=== PATIENT | female | born 1955 | race Caucasian/White ===

== ENCOUNTER 2018-01-19 09:09 | Inpatient (IN) | payer OTHER ==
[~2018-01-19] VITALS: Ht 167.6 cm; Wt 129.4 kg
--- NOTE | 2018-01-19 10:04 | ED GENERAL ADULT ---
See Addendum History of Present Illness General Chief Complaint: General Adult Stated Complaint: COUGH X FEW MONTHS, NAUSEA, DIARRHEA Source: patient Exam Limitations: no limitations Allergies Coded Allergies: NO KNOWN ALLERGIES (03/31/11) Reconcile Medications Aripiprazole 2 MG TABLET 1 TAB PO DAILY DEPREEE (Reported) Desvenlafaxine Succinate (Pristiq ER) 100 MG TAB.ER.24H 1 TAB PO DAILY UNK ( Reported) Famotidine 20 MG TABLET 1 TAB PO BID GERD (Reported) Lisinopril 40 MG TABLET 1 TAB PO DAILY HTN (Reported) Metoprolol Succinate 50 MG TAB.ER.24H 1 TAB PO DAILY HTN (Reported) Mometasone Furoate (Nasonex) 50 MCG SPRAY.PUMP 1 SPRAY NASB DAILY CONGESTION (Reported) Nebivolol HCl (Bystolic) 5 MG TABLET 1 TAB PO DAILY CAD (Reported) Triage Note: PT TO ED WITH C/O "STARTED TO HAVE A FEELING LIKE I HAD SOMETHING IN MY THROAT, WENT TO DR, THOUGHT I WAS OK, BUT I DIDN'T GET BETTER, COUGHING IS VERY BAD, THEN I GET DIARRHEA, NO APPETITE, TRYING TO KEEP HYDRATED". Triage Nurses Notes Reviewed? yes Onset: Gradual Duration: 2 MONTHS Timing: recent history Injury Environment: home Severity: moderate Severity Numbers: 8 No Modifying Factors: none Associated Symptoms: cough HPI: Patient is a 62-year-old female the patient anxiety and depression as well as hypertension presenting to the emergency Department chief complaint of intermittent dry cough, generalized malaise and weakness along with diarrhea has been intermittent for the past 2 months. Patient does report that she's been under a lot of stress, went to her primary care physician last week, thought that her depression medication was not working so she was advised to go to her psychiatrist which he did. Patient just recently added on another medication and she's been on it for about a week and a half. Denies palpitations. Denies headaches or confusion. She does report decreased by mouth intake due to no appetite. Denies any urinary frequency or urgency or dysuria. Positive nausea but no vomiting. Denies fevers or chills. No recent antibiotic use. Denies recent travel. No sick contacts. (She Morrison) Vital Signs & Intake/Output Vital Signs & Intake/Output Vital Signs Date Time Temp Pulse Resp B/P B/P Pulse O2 O2 Flow FiO2 Mean Ox Delivery Rate 01/19 1713 98.2 124 18 132/78 01/19 1635 98.2 124 18 132/78 01/19 1625 98.2 124 18 132/78 01/19 1247 98.2 143 20 136/87 97 Room Air 01/19 1145 97.0 134 22 128/72 01/19 1123 97.0 134 22 128/72 97 01/19 1057 98.0 113/84 01/19 0923 98.0 143 18 113/84 97 (Raisa NICE,Ace Linares) Past History Travel History Traveled to [place] past 21 day No Medical History Any Pertinent Medical History? 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 No (She Morrison) Review of Systems Review of Systems Constitutional: Reports: see HPI, malaise. Comments Review of systems: See HPI, All other systems negative. Constitutional, no chills fever or weight loss HEENT: No visual changes no sore throat Cardiovascular: No chest pain ,palpitation , orthopnea or ankle swelling Skin, no jaundice no rashes Respiratory: No dyspnea sputum or hemoptysis GI: no vomiting : No dysuria No hematuria Muscle skeletal: no back pain, no neck pain, Neurologic: No numbness no confusion, no headaches Psych: Positive stress, anxiety, positive depression, denies SI or HI. Heme/endocrine: No bruising no bleeding no polyuria or polydipsia Immunology: No splenectomy or history of AIDS (She Morrison) Physical Exam Physical Exam General Appearance: alert, awake, comfortable, obese Comments: Obese person in no acute distress HEENT: extraocular motion intact, no nystagmus. Pupils equally round and reactive to light and accommodation. Nose is atraumatic. External auditory canal and Tympanic membranes clear. Pharynx normal. No swelling or edema. No pallor noted to ocular conjunctiva bilaterally. Moist oral mucosa. Neck: Supple, no lymphadenopathy, full range of motion. Back: Nontender, no CVA tenderness. Cardiovascular: Irregular rate and rhythms no AUDIBLE murmurs rubs or gallops, normal JVP Respiratory: Chest nontender. No respiratory distress.breath sounds clear to auscultation bilaterally Abdomen: Soft, obese, nontender, no rebound or guarding, nondistended, no appreciable organomegaly. Normal bowel sounds. No ascites RECTAL: Nontender, no palpable internal hemorrhoids, brown stool, guaiac negative. Extremity: 2+ pitting edema in the lower extremities bilaterally, no calf tenderness to palpation, normal and equal pulses. Neuro: Alert oriented x3 Skin: No appreciable rash on exposed skin, skin is warm and dry. Psych: Mood and affect is normal, memory and judgment is normal. Core Measures ACS in differential dx? Yes CVA/TIA Diagnosis: No Sepsis Present: No Sepsis Focused Exam Completed? No (Randa RIVERA,She) Progress Differential Diagnoses I considered the following diagnoses in my evaluation of the patient: Irritable bowel syndrome, new-onset atrial fibrillation, cardiac arrhythmia, anemia, dehydration, electrolyte abnormality, chf Diagnostic Imaging: Viewed by Me: Radiology Read, CT Scan. Discussed w/RAD: Radiology Read, CT Scan. Radiology Impression: PATIENT: DEWEY HOLCOMB PRESENT AGE: 62 PATIENT ACCOUNT NO: [id number] : 55 LOCATION: [facility] ORDERING PHYSICIAN: She RIVERA SERVICE DATE: 01/19/18 EXAM TYPE: CAT - CT ABD & PELVIS W IV CONTRAST EXAMINATION: CT ABDOMEN AND PELVIS WITH CONTRAST CLINICAL INFORMATION: Abdominal pain and diarrhea. Assess for biliary process. COMPARISON: Chest x-ray from earlier the same day. Abdominal ultrasound from . TECHNIQUE: Multidetector volumetric imaging was performed of the abdomen and pelvis following IV administration of 95 mL of Optiray 320 intravenous contrast. Sagittal and coronal reformatted images were obtained on the technologist's workstation. DLP: 1403 mGy-cm FINDINGS: Public Services Assistant: There is a left total hip replacement. LUNG BASES: Minor dependent changes in the lung bases. The imaged heart and pericardium appear unremarkable. There is a small hiatal hernia. LIVER, GALLBLADDER, AND BILIARY TREE: The liver is diffusely low in attenuation without discrete hepatic lesion or intrahepatic biliary ductal dilatation. There has been prior cholecystectomy. The extrahepatic biliary system slightly patulous proximally with normal tapering distally, likely related to post cholecystectomy appearance. No choledocholithiasis. PANCREAS: Unremarkable. SPLEEN: Unremarkable. ADRENAL GLANDS: Unremarkable. KIDNEYS AND URETERS: The kidneys are normal in size, shape, and attenuation. No hydronephrosis, hydroureter, or calculi seen. No perinephric stranding. BLADDER: The bladder is not well assessed due to streak artifacts from hip replacement. It is decompressed. GASTROINTESTINAL TRACT: There has been gastric bypass surgery. No evidence of obstruction at the anastomoses. Loops of small bowel appear normal in caliber. A normal appendix is visualized. The colon is normal in caliber and decompressed. A few sigmoid diverticula without definitive surrounding inflammatory change, accounting for limited assessment at the rectal level due to streak artifact. No drainable fluid collections. ABDOMINAL WALL: There is a fat-containing left inguinal hernia. LYMPH NODES: No evidence of adenopathy. VASCULAR: Unremarkable. PELVIC VISCERA: There is a coarsely calcified 1.7 cm structure in the right side of the uterus compatible with a fibroid. No adnexal masses. OSSEOUS STRUCTURES: Total left hip replacement. There are degenerative changes of the right hip, pubic symphysis, and SI joints. There is mild multilevel spondylosis in the spine. There are scattered Schmorl's nodes, and endplate spurring. No compression deformities. No evidence of spondylolyses. No evidence of acute osseous abnormality. IMPRESSION: 1. Markedly hypoattenuating liver compatible with hepatic steatosis. No focal hepatic lesions. No evidence of intra or extrahepatic biliary ductal dilatation post cholecystectomy. 2. Status post gastric bypass without evidence of anastomotic obstruction. 3. Few sigmoid diverticula without diverticulitis. DICTATED BY: Elizabeth Hoskins MD DATE/TIME DICTATED:01/19/181307 CAD MANAGER:RAFAEL DATE/TIME TRANSCRIBED:01/19/181307 CONFIDENTIAL, DO NOT COPY WITHOUT APPROPRIATE AUTHORIZATION. <Electronically signed in Other Vendor System> SIGNED BY: Elizabeth Hoskins MD 01/19/18 1321, PATIENT: DEWEY HOLCOMB PRESENT AGE: 62 PATIENT ACCOUNT NO: [id number] : 55 LOCATION: [facility] ORDERING PHYSICIAN: She RIVERA SERVICE DATE: 01/19/18 EXAM TYPE: CAT - CT ABD & PELVIS W IV CONTRAST EXAMINATION: CT ABDOMEN AND PELVIS WITH CONTRAST CLINICAL INFORMATION: Abdominal pain and diarrhea. Assess for biliary process. COMPARISON: Chest x-ray from earlier the same day. Abdominal ultrasound from 03/31/2011. TECHNIQUE: Multidetector volumetric imaging was performed of the abdomen and pelvis following IV administration of 95 mL of Optiray 320 intravenous contrast. Sagittal and coronal reformatted images were obtained on the technologist's workstation. DLP: 1403 mGy-cm FINDINGS: Public Services Assistant: There is a left total hip replacement. LUNG BASES: Minor dependent changes in the lung bases. The imaged heart and pericardium appear unremarkable. There is a small hiatal hernia. LIVER, GALLBLADDER, AND BILIARY TREE: The liver is diffusely low in attenuation without discrete hepatic lesion or intrahepatic biliary ductal dilatation. There has been prior cholecystectomy. The extrahepatic biliary system slightly patulous proximally with normal tapering distally, likely related to post cholecystectomy appearance. No choledocholithiasis. PANCREAS: Unremarkable. SPLEEN: Unremarkable. ADRENAL GLANDS: Unremarkable. KIDNEYS AND URETERS: The kidneys are normal in size, shape , and attenuation. No hydronephrosis, hydroureter, or calculi seen. No perinephric stranding. BLADDER: The bladder is not well assessed due to streak artifacts from hip replacement. It is decompressed. GASTROINTESTINAL TRACT: There has been gastric bypass surgery. No evidence of obstruction at the anastomoses. Loops of small bowel appear normal in caliber. A normal appendix is visualized. The colon is normal in caliber and decompressed. A few sigmoid diverticula without definitive surrounding inflammatory change, accounting for limited assessment at the rectal level due to streak artifact. No drainable fluid collections. ABDOMINAL WALL: There is a fat-containing left inguinal hernia. LYMPH NODES: No evidence of adenopathy. VASCULAR: Unremarkable. PELVIC VISCERA: There is a coarsely calcified 1.7 cm structure in the right side of the uterus compatible with a fibroid. No adnexal masses. OSSEOUS STRUCTURES: Total left hip replacement. There are degenerative changes of the right hip, pubic symphysis, and SI joints. There is mild multilevel spondylosis in the spine. There are scattered Schmorl's nodes, and endplate spurring. No compression deformities. No evidence of spondylolyses. No evidence of acute osseous abnormality. IMPRESSION: 1. Markedly hypoattenuating liver compatible with hepatic steatosis. No focal hepatic lesions. No evidence of intra or extrahepatic biliary ductal dilatation post cholecystectomy. 2. Status post gastric bypass without evidence of anastomotic obstruction. 3. Few sigmoid diverticula without diverticulitis. DICTATED BY: Elizabeth Hoskins MD DATE/TIME DICTATED:01/19/181307 CAD MANAGER:RAFAEL DATE/TIME TRANSCRIBED:1307 CONFIDENTIAL, DO NOT COPY WITHOUT APPROPRIATE AUTHORIZATION. < Electronically signed in Other Vendor System> SIGNED BY: Elizabeth Hoskins MD 01/19/18 1321 Initial ED EKG: RAPID ATRIAL FIBRILLATION. 152 Comments: Spoke with Dr. Linn, recommending we continue trying IV Lopressor to control heart rate. Patient will be anticoagulated with heparin. Patient will be admitted to telemetry under Dr. Cortés for rapid atrial fibrillation which is new for this patient. Patient and family informed of all lab work results and imaging results. (Randa RIVERA,She) Differential Diagnoses I considered the following diagnoses in my evaluation of the patient: Plan of Care: Orders Procedure Date/time Status MAGNESIUM 01/20 0600 Active CBC WITHOUT DIFFERENTIAL 01/20 0600 Active BASIC ELECTROLYTES PLUS BUN&CR 01/20 0600 Active Heart Healthy Diet 01/19 D Active TROPONIN LEVEL 01/19 2200 Active EKG 01/19 2200 Active Weight 01/19 1626 Active Teach/Educate 01/19 1626 Active Pain Treatment and Response 01/19 1626 Active Nutritional Intake, Monitor 01/19 1626 Active Isolation 01/19 1626 Active Patient Care Conference 01/19 1626 Active TROPONIN LEVEL 01/19 1600 Complete EKG 01/19 1600 Active Pathway - chart 01/19 1505 Active ECHOCARDIOGRAM 01/19 1505 Active Patient Data 01/19 1348 Active Add-on Test (ER Only) 01/19 1325 Active ED Holding Orders 01/19 1255 Active Admit to inpatient 01/19 1255 Active Vital Signs 01/19 1255 Active Code Status 01/19 1255 Active Add-on Test (ER Only) 01/19 1125 Active Add-on Test (ER Only) 01/19 1057 Active HEPATITIS PANEL 01/19 1025 Active ETHANOL 01/19 1025 Active D-DIMER 01/19 1025 Complete DIRECT BILIRUBIN 01/19 1025 Active Intake & Output 01/19 1019 Active Telemetry/Director Medical Surgical 01/19 1004 Active THYROID STIMULATING HORMONE 01/19 1004 Active TROPONIN LEVEL 01/19 1004 Active PARTIAL THROMBOPLASTIN TIME 01/19 1004 Complete PROTHROMBIN TIME 01/19 1004 Complete MAGNESIUM 01/19 1004 Active FREE T4 01/19 1004 Active COMPREHENSIVE METABOLIC PANEL 01/19 1004 Active CBC WITHOUT DIFFERENTIAL 01/19 1004 Complete B-TYPE NATRIURETIC PEP (BNP) 01/19 1004 Active EKG 01/19 0957 Active Pathway - chart 01/19 UNK Active House Staff 01/19 UNK Active Lab Add-on Test 01/19 UNK Active VTE Mechanical Prophylaxis 01/19 UNK Active CIWA 01/19 UNK Active Activity/Ambulation 01/19 UNK Active SOCIAL WORK CONSULT 01/19 UNK Active Current Medications Sig/Antwon Start time Last Medication Dose Stop Time Status Admin Aripiprazole 2 MG DAILY 01/20 0900 AC (Abilify) Folic Acid 1 MG DAILY 01/20 0900 AC (Folic Acid) Lisinopril 40 MG DAILY 01/20 0900 AC (Prinivil) Multivitamins 1 TAB DAILY 01/20 0900 AC (Theragran Vitamins) Thiamine HCl 100 MG DAILY 01/20 0900 AC (Vitamin B1) Famotidine 20 MG BID 01/19 2100 AC (Pepcid) Lorazepam 0 Q1P PRN 01/19 1600 AC (Ativan) Acetaminophen 650 MG Q6P PRN 01/19 1500 AC (Tylenol) Heparin Sodium 25,000 UNIT Q24H 01/19 1345 AC 01/19 (Porcine) 1421 (Heparin) Sodium Chloride 500 ML Diltiazem HCl 10 MG ONCE ONE 01/19 1045 CAN (Cardizem) 01/19 1046 Laboratory Tests 01/19/18 1617: Troponin I < 0.01 01/19/18 1025: Anion Gap 12, Estimated GFR > 60, BUN/Creatinine Ratio 11.1, Glucose 93, Calcium 8.2 L, Magnesium 1.5 L, Total Bilirubin 3.1 H, Direct Bilirubin 1.4 H, AST 149 H, ALT 97 H, Alkaline Phosphatase 109, Troponin I < 0.01, Pro-B- Natriuretic Pept 3620 H, Total Protein 6.9, Albumin 3.1 L, Globulin 3.8, Albumin/Globulin Ratio 0.8 L, TSH 5.510 H, Free T4 1.74, PT 12.6 H, INR 1.15, APTT 32, D-Dimer High Sensitivty 474 H, CBC w Diff NO MAN DIFF REQ, RBC 3.63 L , MCV 103.8 H, MCH 35.4 H, MCHC 34.1, RDW 13.7, MPV 9.1, Gran % 79.0 H, Lymphocytes % 9.1 L, Monocytes % 11.0 H, Eosinophils % 0.4, Basophils % 0.5, Absolute Granulocytes 5.3, Absolute Lymphocytes 0.6 L, Absolute Monocytes 0.7 H, Absolute Eosinophils 0, Absolute Basophils 0, Hepatitis A IgM Ab Pending, Hep Bs Antigen Pending, Hep B Core IgM Ab Conf Pending, Hepatitis C Antibody Pending , Serum Alcohol < 10.0 Dr. Lovett informed of elevated LFTs and bilirubin. No signs of ductal dilation on CT. (She Morrison) (Raisa NICE,Ace Linares) Departure Departure Disposition: STILL A PATIENT Condition: Stable Clinical Impression Primary Impression: Rapid atrial fibrillation Referrals: Dorina Hernandez MD (PCP/Family) Departure Forms: Customer Survey General Discharge Information Admission Note Spoke With: Farnaz Thompson MD Documentation of Exam: Documentation of any treatments & extenuating circumstances including Concerns Regarding Discharge (functional status, medication knowledge or non-compliance, living conditions, etc.) that warrant an admission rather than observation: Patient requiring IV heparinization for new onset atrial fibrillation, cardiology consultation, telemetry monitoring, patient may need GI consultation secondary to elevated LFTs and bilirubin. Discharge at this time is medically harmful secondary to likely have worsening symptoms. Medication management. (She Morrison) PA/DOG BEAUTICIAN Co-Sign Statement Statement: ED Attending supervision documentation- [X] I saw and evaluated the patient. I have also reviewed all the pertinent lab results and diagnostic results. I agree with the findings and the plan of care as documented in the PA's/DOG BEAUTICIAN's documentation. Patient presents for evaluation of just not feeling well overall with coughing spasms. Physical examination reveals a comfortable appearing and conversant patient a rapid irregular heart rate and otherwise clear lungs. [] I have reviewed the ED Record and agree with the PA's/DOG BEAUTICIAN's documentation. [] Additions or exceptions (if any) to the PAs/DOG BEAUTICIAN's note and plan are summarized below: [] (Raisa NICE,Ace Linares) PA/DOG BEAUTICIAN Co-Sign Statement Statement: ED Attending supervision documentation- [X] I saw and evaluated the patient. I have also reviewed all the pertinent lab results and diagnostic results. I agree with the findings and the plan of care as documented in the PA's/DOG BEAUTICIAN's documentation. [] I have reviewed the ED Record and agree with the PA's/DOG BEAUTICIAN's documentation. [] Additions or exceptions (if any) to the PAs/DOG BEAUTICIAN's note and plan are summarized below: [] (Lyndon MENDOZA,Ace Nichols) Critical Care Note Critical Care Note Critical Care Time: 30-74 min (Randa RIVERA,She)
[2018-01-19 10:34] LABS: ABSOLUTE BASOPHIL COUNT 0 /CUMM (0.0-0.2); ABSOLUTE EOSINOPHIL COUNT 0 /CUMM (0.0-0.7); ABSOLUTE GRANULOCYTE CT 5.3 /CUMM (1.4-6.5); ABSOLUTE LYMPH COUNT 0.6 /CUMM (1.2-3.4); ABSOLUTE MONOCYTE COUNT 0.7 /CUMM (0.10-0.60); BASOPHIL % 0.5 % (0.0-2.0); EOSINOPHIL % 0.4 % (0-5); HEMATOCRIT 37.7 % (37-47); MEAN CORPUSCULAR HGB 35.4 PG (27.0-31.0); MEAN CORPUSCULAR HGB CONC 34.1 G/DL (33.0-37.0); MEAN CORPUSCULAR VOLUME 103.8 FL (81.0-99.0); MEAN PLATELET VOLUME 9.1 FL (7.4-10.4); PLATELET COUNT 115 /CUMM (130-400); RBC DISTRIBUTION WIDTH 13.7 % (11.5-14.5); RED BLOOD CELL CT 3.63 /CUMM (4.20-5.40); WHITE BLOOD CELL COUNT 6.8 /CUMM (4.8-10.8)
[2018-01-19 10:43] LABS: PT 12.6 SEC (9.4-12.5); PTT 32 SEC (25-37)
--- NOTE | 2018-01-19 11:21 | RADIOLOGY REPORT ---
XR PORTABLE CHEST CLINICAL INFORMATION: Congestion and shortness of breath. COMPARISON: None available. TECHNIQUE: Portable frontal view of the chest was obtained. FINDINGS: Symmetric lung inflation. There is no focal consolidation, pleural effusion, or pneumothorax. Cardiac silhouette size is normal. There are no acute osseous findings. IMPRESSION: No acute pulmonary process.
[2018-01-19] MEDS ORDERED: NASONEX17 GM NASB (11:45)
[2018-01-19] MEDS ORDERED: ARIPIPRAZOLE2 MG PO (11:45)
[2018-01-19] MEDS ORDERED: PRISTIQ ER100 MG PO (11:46)
[2018-01-19] MEDS ORDERED: METOPROLOL SUCC50 M2 PO (11:46)
[2018-01-19] MEDS ORDERED: LISINOPRIL40 M1 PO (11:46)
--- NOTE | 2018-01-19 13:21 | CT SCAN REPORT ---
EXAMINATION: CT ABDOMEN AND PELVIS WITH CONTRAST CLINICAL INFORMATION: Abdominal pain and diarrhea. Assess for biliary process. COMPARISON: Chest x-ray from earlier the same day. Abdominal ultrasound from 03/31/2011. TECHNIQUE: Multidetector volumetric imaging was performed of the abdomen and pelvis following IV administration of 95 mL of Optiray 320 intravenous contrast. Sagittal and coronal reformatted images were obtained on the technologist's workstation. DLP: 1403 mGy-cm FINDINGS: Diesel Fitter Mechanic: There is a left total hip replacement. LUNG BASES: Minor dependent changes in the lung bases. The imaged heart and pericardium appear unremarkable. There is a small hiatal hernia. LIVER, GALLBLADDER, AND BILIARY TREE: The liver is diffusely low in attenuation without discrete hepatic lesion or intrahepatic biliary ductal dilatation. There has been prior cholecystectomy. The extrahepatic biliary system slightly patulous proximally with normal tapering distally, likely related to post cholecystectomy appearance. No choledocholithiasis. PANCREAS: Unremarkable. SPLEEN: Unremarkable. ADRENAL GLANDS: Unremarkable. KIDNEYS AND URETERS: The kidneys are normal in size, shape, and attenuation. No hydronephrosis, hydroureter, or calculi seen. No perinephric stranding. BLADDER: The bladder is not well assessed due to streak artifacts from hip replacement. It is decompressed. GASTROINTESTINAL TRACT: There has been gastric bypass surgery. No evidence of obstruction at the anastomoses. Loops of small bowel appear normal in caliber. A normal appendix is visualized. The colon is normal in caliber and decompressed. A few sigmoid diverticula without definitive surrounding inflammatory change, accounting for limited assessment at the rectal level due to streak artifact. No drainable fluid collections. ABDOMINAL WALL: There is a fat-containing left inguinal hernia. LYMPH NODES: No evidence of adenopathy. VASCULAR: Unremarkable. PELVIC VISCERA: There is a coarsely calcified 1.7 cm structure in the right side of the uterus compatible with a fibroid. No adnexal masses. OSSEOUS STRUCTURES: Total left hip replacement. There are degenerative changes of the right hip, pubic symphysis, and SI joints. There is mild multilevel spondylosis in the spine. There are scattered Schmorl's nodes, and endplate spurring. No compression deformities. No evidence of spondylolyses. No evidence of acute osseous abnormality. IMPRESSION: 1. Markedly hypoattenuating liver compatible with hepatic steatosis. No focal hepatic lesions. No evidence of intra or extrahepatic biliary ductal dilatation post cholecystectomy. 2. Status post gastric bypass without evidence of anastomotic obstruction. 3. Few sigmoid diverticula without diverticulitis.
--- NOTE | 2018-01-19 13:52 | History & Physical ---
HowardRivas 01/19/18 1351: General Information and HPI MD Statement: I have seen and personally examined DEWEY HOLCOMB and documented this H&P. The patient is a 62 year old F who presented with a patient stated chief complaint of generalized weakness, abdominal discomfort, decreased appetite and dry cough for last couple of days []. Source of Information: patient, old records Exam Limitations: no limitations History of Present Illness: 62 YO obese F ex-smoker with PMH of HTN, GERD, depression, gastric bypass and SVT status post ablation came to ED with chief complaint of generalized weakness , decreased appetite, abdominal discomfort and cough for last couple of days. Patient reported that she was in her usual state of health when she noticed generalized weakness and decreased appetite. Patient also reported that she has chronic dry cough since for last 1 month and it comes in bouts. Patient reported that during cough episode sometimes she has bowel and urinary incontinence. She also endorsed that she has some abdominal discomfort with some callus bowel movements intermittently. Patient denied any chest pain, palpitation, shortness of breath, blood in stool, blood in vomitus, headache, sweating, nausea, vomiting, constipation, sick contact, any nose, trauma. Patient also reported that she is drinking alcohol 3 -4 drinks every day and her last drink was 2 days back. Patient reported that she is seeing Dr. 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 Last time patient was admitted to [facility] for cholecystectomy in 2010 and she was found to have SVT that was spontaneously converted back to sinus rhythm. She had last echocardiogram in 2010 that showed ejection fraction 5560 percent. ED course: Vitals: Temperature 98.0, pulse 143, respiratory rate 18, blood pressure 113/84, oxygen saturation 97% on room air. Labs: WBC count 6.8, hemoglobin 12.8, hematocrit 37.7, platelet count 115, sodium 140, ratio 4.1, BUN 10, creatinine 0.9, anion gap 12, BUNs/creatinine ratio 11.1, glucose 93, calcium 8.2, magnesium 1.5, total bilirubin 3.1, direct bilirubin 1.4, AST 149, AST 97, troponin less than 0.01, proBNP 3620 She was given 2 pushes of 5 mg of metoprolol in ED Allergies/Medications Allergies: Coded Allergies: NO KNOWN ALLERGIES (03/31/11) Past History Travel History Traveled to [place] past 21 day No Medical History Neurological: NONE EENT: NONE Cardiovascular: hypertension Respiratory: NONE Gastrointestinal: GERD, GASTRIC BYPASS Hepatic: NONE Renal: NONE Musculoskeletal: NONE Psychiatric: depression Endocrine: NONE Blood Disorders: NONE Cancer(s): NONE 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 Denies: chills, fever. EENTM: Reports: no symptoms. Cardiovascular: Denies: chest pain, palpitations. Respiratory: Reports: cough. Denies: short of breath, sputum production. GI: Reports: abdominal pain, diarrhea, bowel incontinence. Denies: nausea, vomiting. Genitourinary: Reports: no symptoms. Musculoskeletal: Reports: no symptoms. Neurological/Psychological: Reports: no symptoms. Exam & Diagnostic Data Last 24 Hrs of Vital Signs/I&O Vital Signs Date Time Temp Pulse Resp B/P B/P Pulse O2 O2 Flow FiO2 Mean Ox Delivery Rate 01/19 1247 98.2 143 20 136/87 97 Room Air 01/19 1145 97.0 134 22 128/72 01/19 1123 97.0 134 22 128/72 97 01/19 1057 98.0 113/84 01/19 0923 98.0 143 18 113/84 97 Intake & Output 01/19 1600 01/19 0800 01/19 0000 Intake Total 1000 Output Total Balance 1000 Intake, IV 1000 Patient 265 lb Weight Weight Reported by Patient Measurement Method Physical Exam General Appearance Alert, Oriented X3, Cooperative Skin No Rashes Skin Temp/Moisture Exam: Warm/Dry Sepsis Skin Exam (color): Normal for Ethnicity HEENT Atraumatic, PERRLA, EOMI Neck Supple Cardiovascular Normal S1, Normal S2 Lungs Clear to Auscultation Abdomen Soft, No Tenderness Neurological Normal Speech, Strength at 5/5 X4 Ext, Normal Tone Extremities B/l pedal edema Last 24 Hrs of Labs/[place]: Laboratory Tests 01/19/18 1025: Anion Gap 12, Estimated GFR > 60, BUN/Creatinine Ratio 11.1, Glucose 93, Calcium 8.2 L, Magnesium 1.5 L, Total Bilirubin 3.1 H, Direct Bilirubin 1.4 H, AST 149 H, ALT 97 H, Alkaline Phosphatase 109, Troponin I < 0.01, Pro-B- Natriuretic Pept 3620 H, Total Protein 6.9, Albumin 3.1 L, Globulin 3.8, Albumin/Globulin Ratio 0.8 L, TSH 5.510 H, Free T4 1.74, PT 12.6 H, INR 1.15, APTT 32, D-Dimer High Sensitivty 474 H, CBC w Diff NO MAN DIFF REQ, RBC 3.63 L , MCV 103.8 H, MCH 35.4 H, MCHC 34.1, RDW 13.7, MPV 9.1, Gran % 79.0 H, Lymphocytes % 9.1 L, Monocytes % 11.0 H, Eosinophils % 0.4, Basophils % 0.5, Absolute Granulocytes 5.3, Absolute Lymphocytes 0.6 L, Absolute Monocytes 0.7 H, Absolute Eosinophils 0, Absolute Basophils 0, Serum Alcohol < 10.0 Assessment/Plan Assessment: 62 YO obese F ex-smoker with PMH of HTN, GERD, depression, gastric bypass and SVT status post ablation came to ED with chief complaint of generalized weakness , decreased appetite, abdominal discomfort and cough for last couple of days. We'll admit the patient on telemetry floor to treat for; Atrial fibrillation with rapid ventricle response: -Continue metoprolol 25 mg twice a day -Patient may need Cardizem drip to control her heart rate -Continue IV heparin for anticoagulation considering her high CHADs-Vasc score. -Cardiology consult -Echocardiogram in a.m. Alcohol withdrawal: -Patient has history of alcohol abuse -We will put the patient on CIWA protocol and will give IV Ativan when necessary. -Vitamin B and folic acid supplement -Continue thiamine supplement Transient transaminitis: -Probably due to alcoholic liver disease -We will monitor her LFTs -We will consider right upper quadrant ultrasound/CT scan abdomen Thrombocytopenia: -probably due to alcoholic liver disease -Continue monitoring platelet count -Avoid any medication that decreases platelet count of function. History of Hypertension: -Continue her home medications History of GERD and gastric bypass: -Continue omeprazole History of depression: -Continue home medications DVT prophylaxis: Mechanical and the subcutaneous heparin Code Status: Full code As Ranked By This Provider Problem List: 1. Rapid atrial fibrillation 2. Transaminitis 3. Alcohol withdrawal Core Measures/Misc (06/21) Acute Coronary Syndrome ACS Diagnosis: No Congestive Heart Failure Congestive Heart Failure Diagnosis No Cerebrovascular Accident CVA/TIA Diagnosis: No VTE (View Protocol) VTE Risk Factors Age>40 No Mechanical VTE Prophylaxis d/t N/A MechProphylax Ordered No VTE Pharm Prophylaxis d/t NA PharmProphylax ordered Sepsis (View protocol) Sepsis Present: No Farnaz Thompson MD 01/19/18 1630: General Information and HPI Allergies/Medications Home Med list Aripiprazole 2 MG TABLET 1 TAB PO DAILY DEPREEE (Reported) Desvenlafaxine Succinate (Pristiq ER) 100 MG TAB.ER.24H 1 TAB PO DAILY UNK ( Reported) Famotidine 20 MG TABLET 1 TAB PO BID GERD (Reported) Lisinopril 40 MG TABLET 1 TAB PO DAILY HTN (Reported) Metoprolol Succinate 50 MG TAB.ER.24H 1 TAB PO DAILY HTN (Reported) Mometasone Furoate (Nasonex) 50 MCG SPRAY.PUMP 1 SPRAY NASB DAILY CONGESTION (Reported) Nebivolol HCl (Bystolic) 5 MG TABLET 1 TAB PO DAILY CAD (Reported) Past Family/Social History Psychosocial History Other Social History: Family history non contributory to current illness. 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 fib and imaging and labs that are really suggestive off liver disease suspected alcoholic liver disease. Patient has new rapid A. fib and given her chads score she needs anticoagulation. The ED has empirically started on IV heparin and will continue that for now. We'll call a formal cardiology consult as I think she will be eligible for one of the novel agents for anticoagulation. She was given IV metoprolol for rate control and her rate is still fairly rapid. Will have to speak to cardiology- she takes lisinopril with 2 beta blockers as an outpatient. For now will have her on lisinopril and will give her one of the beta blockers with likely IV Cardizem for rate control. We'll check a TSH for hypothyroidism, given the macrocytosis we'll check a B12 and folate as well. She has the elevated bili with the transaminitis and the CT abdomen which shows hepatic steatosis and I think it's all attributable to alcohol. Nonetheless will check a hepatitis panel. Will also call a aids social worker consult as I think on discharge she will need help with alcohol cessation. We'll get an echocardiogram given the new rapid A. fib, watch on telemetry. The IV heparin will also serve for DVT prophylaxis we will replete her hypomagnesemia and follow closely. Steve Alex MD 01/19/18 0211: Resident Review Statement Other Findings: History of Present Illness 62 year old woman with past medical history of SVT s/p ablation (2016), morbid obesity, anxiety, depression, hypertension, and hyperlipidemia seen for evaluation of persistent cough with nausea, diarrhea, weakness, and malaise. Patient reports that she has had a progressively worsening cough over the past few months. This past Thursday she developed nausea with diarrhea and progressively worsening fatigue and malaise. Patient left work early Thursday and for persistence of these symptoms she came to the [place] ED for evaluation. Presently patient states that her symptoms are unchanged. She denies any recent travel, antibiotics, new medications, sick contacts, or consumption of raw/ undercooked food. Review of Systems She otherwise denies any headache, fever, chills, lightheadedness, dizziness, blurred/double vision, chest pain, palpitations, heartburn, shortness of breath, nausea, vomiting, diarrhea. Objective Vitals- Temp 97.0-98.2, HR 134-143, RR 18-22, SBP 113-136, O2 97% on Room air Physical Exam -GEN: well developed, morbidly obese middle aged woman in no acute distress -HEENT: NCAT, PERRL, EOMI, anicteric sclera, MMM -NECK: Supple, no JVD, trachea midline -CARD: irregularly irregular -PULM: Diminished bibasilar airflow -ABD: Soft, NT, ND, BS+ -NEURO: Awake and alert, CN II-XII grossly intact -EXT: no edema Labs / Imaging / Studies -CBC: WBC 6.8, HGB 12.8, HCT 37.7, PLT 115 -BMP: Na 140, K 4.1, Cl 104, CO2 24, BUN 10, Cr 0.9 -LFT: T. bili 3.1, D. bili 1.4, AST 149, ALT 97 -Misc: Mg 1.5, D-Dimer 474, INR 1.15, BNP 3620, troponin I < 0.01, TSH 5.510, T4 1.74, EtOH < 10 -EKG: Atrial fibrillation with rapid ventricular response -CXR: no acute pulmonary process -CT Abdomen / Pelvis with IV contrast: 1. Markedly hypoattenuating liver compatible with hepatic steatosis. No focal hepatic lesions. No evidence of intra or extrahepatic biliary ductal dilatation post cholecystectomy. 2. Status post gastric bypass without evidence of anastomotic obstruction. 3. Few sigmoid diverticula without diverticulitis. Assessment 62 year old woman with multiple medical problems significant for SVT s/p ablation, hypertension, hyperlipidemia and obesity seen for evaluation of persistent worsening cough with new diarrhea with nausea and fatigue. Patient was found to be tachycardic in triage for which a 12-lead EKG was obtained that demonstrated new onset atrial fibrillation with rapid ventricular response. She received several pushes of intravenous lopressor with poor control of her heart rate. She was started on a heparin drip due to a CHADsVASc score of 2 for hypertension and gender. Patient is to be admitted to the telemetry floor for rate control, cardiology evaluation, and echocardiogram. Problem List -New Onset Atrial Fibrillation with Rapid Ventricular Response -Transaminitis with hepatic steatosis -Excessive alcohol use -Macrocytosis, likely due to alcohol/nutritional deficiency -History of SVT s/p ablation (2015) -Morbid obesity -Anxiety / Depression -Hypertension -Hyperlipidemia Plan -Admit to telemetry -Telemetry monitoring -CIWA -Ativan PRN per CIWA -Heparin GGT -Metoprolol 25 mg PO BID -Metoprolol 5 mg IV PRN for tachycardia -Thiamine / Folate / Multivitamin -Cardiology consult for new afib -Social work consult for alcohol counseling -Echocardiogram -Check hepatitis panel -Trend troponin / EKG until peak or three negative sets -Pain control with acetaminophen -Heart healthy diet -DVT ppx with heparin GGT -FULL CODE
[2018-01-19] MEDS ORDERED: FAMOTIDINE20 M1 PO (14:17)
[2018-01-19] MEDS ORDERED: BYSTOLIC5 M1 PO (14:18)
--- NOTE | 2018-01-19 15:31 | Admission Certification ---
Admission Certification Certification Statement - As attending physician, I certify that at the time of - admission, based on clinical presentation, severity of - symptoms, need for further diagnostic testing and - therapeutic interventions, and risk of adverse outcomes - without in-hospital treatment, in my clinical assessment, - this patient requires an acute hospital stay for a minimum - of two nights or longer. I have also considered psychsocial - factors such as support system, advanced age, financial - issues, cognitive issues, and failed out-patient treatments, - past re-admission history, safety of patient, and lack of - compliance as applicable. Specific rationale supporting this admission is: New atrial fibrillation
--- NOTE | 2018-01-19 15:34 | ULTRASOUND REPORT ---
EXAMINATION: US TRIPLEX OF LOWER EXTREMITIES, BILATERAL CLINICAL INFORMATION: Elevated d-dimer, unable to repeat CTA at this time. COMPARISON: None TECHNIQUE: Color-flow triplex imaging with spectral analysis and compression Doppler were performed on the lower extremities. FINDINGS: Respiratory variation, normal compression and augmented flow are noted throughout the lower extremities. The visualized common femoral vein, superficial femoral vein, profunda femoral vein, popliteal vein and midcalf peroneal and posterior tibial venous segments show no evidence of deep venous thrombosis. There is no Rivas's cyst. IMPRESSION: Normal triplex scan without evidence of deep venous thrombosis involving the lower extremities.
[2018-01-19 16:25] VITALS: BP 132/78
[2018-01-19 16:35] VITALS: BP 132/78
[2018-01-19 18:35] VITALS: BP 110/72
--- NOTE | 2018-01-19 20:46 | Cons- Cardiology ---
General Information and HPI Consulting Request Date of Consult: 01/19/18 Requested By: Rishabh Madrigal MD Reason for Consult: "New onset" atrial fibrillation with a rapid ventricular response. Source of Information: patient, old records Exam Limitations: no limitations History of Present Illness: Mrs. Becka Langston is a 62-year-old female with a history of former tobacco use, obesity s/p bariatric surgery (gastric bypass), hypertension, and SVT s/p successful catheter ablation in March 2016 at [facility] (Eliot Rodriguez M.D.) who presented with decreased appetite, weakness, and paroxysms of coughing, dry heaves, abdominal pain secondary to her inability to mobilize phlegm that lodges in her throat that has been occurring since December of this year and who sought medical attention after experiencing 3 such episodes this morning and was discovered to be in atrial fibrillation with a rapid ventricular response. She denies any chest discomfort, palpitations, orthopnea, paroxysmal nocturnal dyspnea, lower extremity edema, but does admit to shortness of breath on exertion has been progressive and began occurring around December as well. According to the record, she was last admitted here for cholecystectomy in 2010 and was discovered to be in SVT that spontaneously converted back to sinus rhythm. An echocardiogram was clear 2011 revealed preserved ejection fraction 55-60%. At present, the ventricular response to her atrial fibrillation remains rapid despite multiple IV boluses of metoprolol 5 mg. There is a short of of IV diltiazem. Allergies/Medications Allergies: Coded Allergies: NO KNOWN ALLERGIES (03/31/11) Home Med List: Aripiprazole 2 MG TABLET 1 TAB PO DAILY DEPREEE (Reported) Desvenlafaxine Succinate (Pristiq ER) 100 MG TAB.ER.24H 1 TAB PO DAILY UNK ( Reported) Famotidine 20 MG TABLET 1 TAB PO BID GERD (Reported) Lisinopril 40 MG TABLET 1 TAB PO DAILY HTN (Reported) Metoprolol Succinate 50 MG TAB.ER.24H 1 TAB PO DAILY HTN (Reported) Mometasone Furoate (Nasonex) 50 MCG SPRAY.PUMP 1 SPRAY NASB DAILY CONGESTION (Reported) Nebivolol HCl (Bystolic) 5 MG TABLET 1 TAB PO DAILY CAD (Reported) Review of Systems Review of Systems: 14 point system review was obtained and was noncontributory, other than as above. 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 Home Services at Home: None Smoking Status: Never Smoked ETOH Use: heavy use Illicit Drug Use: denies illicit drug use Exam & Diagnostic Data Vital Signs and I&O Vital Signs Date Time Temp Pulse Resp B/P B/P Pulse O2 O2 Flow FiO2 Mean Ox Delivery Rate 01/19 183 99.3 146 18 110/72 01/19 1835 99.3 146 18 110/72 98 Room Air Room Air 01/19 181 98.0 153 18 150/79 01/19 1812 98.0 153 18 150/79 01/19 1717 98.0 153 18 150/79 99 Room Air 01/19 1713 98.2 124 18 132/78 01/19 1635 98.2 124 18 132/78 01/19 1625 98.2 124 18 132/78 01/19 1247 98.2 143 20 136/87 97 Room Air 01/19 1145 97.0 134 22 128/72 01/19 1123 97.0 134 22 128/72 97 01/19 1057 98.0 113/84 01/19 0923 98.0 143 18 113/84 97 Intake & Output 01/19 1600 01/19 0800 01/19 0000 01/18 1600 01/18 0800 01/18 0000 Intake Total 1000 Output Total Balance 1000 Intake, IV 1000 Patient 265 lb Weight Weight Reported by Patient Measurement Method Physical Exam: Well-developed, overweight middle-aged female in no acute distress with nasal oxygen in place. Vital signs: See above. HEENT: Normocephalic, atraumatic, EOMI, slightly dry mucous membranes. Neck: No JVD, no bruits. Lungs: Clear to auscultation bilaterally. Heart: S1, S2 (irregularly, irregular). Abdomen: Soft, nontender, positive bowel sounds. Extremities: No edema. Labs/[place] Results: Laboratory Tests 01/19 01/19 1617 1025 Chemistry Sodium (137 - 145 mmol/L) 140 Potassium (3.5 - 5.1 mmol/L) 4.1 Chloride (98 - 107 mmol/L) 104 Carbon Dioxide (22 - 30 mmol/L) 24 Anion Gap (5 - 16) 12 BUN (7 - 17 mg/dL) 10 Creatinine (0.5 - 1.0 mg/dL) 0.9 Estimated GFR (>60 ml/min) > 60 BUN/Creatinine Ratio (7 - 25 %) 11.1 Glucose (65 - 99 mg/dL) 93 Calcium (8.4 - 10.2 mg/dL) 8.2 L Magnesium (1.6 - 2.3 mg/dL) 1.5 L Total Bilirubin (0.2 - 1.3 mg/dL) 3.1 H Direct Bilirubin (< 0.4 mg/dL) 1.4 H AST (14 - 36 U/L) 149 H ALT (9 - 52 U/L) 97 H Alkaline Phosphatase (<127 U/L) 109 Troponin I (< 0.11 ng/ml) < 0.01 < 0.01 [id number] Pept (<125 pg/mL) 3620 H Total Protein (6.3 - 8.2 g/dL) 6.9 Albumin (3.5 - 5.0 g/dL) 3.1 L Globulin (1.9 - 4.2 gm/dL) 3.8 Albumin/Globulin Ratio (1.1 - 2.2 %) 0.8 L TSH (0.270 - 4.200 uIU/mL) 5.510 H Free T4 (0.78 - 2.44 ng/dL) 1.74 Coagulation PT (9.4 - 12.5 SEC) 12.6 H INR (0.90 - 1.19) 1.15 APTT (25 - 37 SEC) 32 D-Dimer High Sensitivty (0 - 243 ng/ml) 474 H Hematology CBC w Diff NO MAN DIFF REQ WBC (4.8 - 10.8 /CUMM) 6.8 RBC (4.20 - 5.40 /CUMM) 3.63 L Hgb (12.0 - 16.0 G/DL) 12.8 Hct (37 - 47 %) 37.7 MCV (81.0 - 99.0 FL) 103.8 H MCH (27.0 - 31.0 PG) 35.4 H MCHC (33.0 - 37.0 G/DL) 34.1 RDW (11.5 - 14.5 %) 13.7 Plt Count (130 - 400 /CUMM) 115 L MPV (7.4 - 10.4 FL) 9.1 Gran % (42.2 - 75.2 %) 79.0 H Lymphocytes % (20.5 - 51.1 %) 9.1 L Monocytes % (1.7 - 9.3 %) 11.0 H Eosinophils % (0 - 5 %) 0.4 Basophils % (0.0 - 2.0 %) 0.5 Absolute Granulocytes (1.4 - 6.5 /CUMM) 5.3 Absolute Lymphocytes (1.2 - 3.4 /CUMM) 0.6 L Absolute Monocytes (0.10 - 0.60 /CUMM) 0.7 H Absolute Eosinophils (0.0 - 0.7 /CUMM) 0 Absolute Basophils (0.0 - 0.2 /CUMM) 0 Serology Hepatitis A IgM Ab (NONREACTIVE) Pending Hep Bs Antigen (NONREACTIVE) Pending Hep B Core IgM Ab Conf (NONREACTIVE) Pending Hepatitis C Antibody (NONREACTIVE) Pending Toxicology Serum Alcohol (<10 MG/DL) < 10.0 Diagnostic Data EKG Results 01/19/2018: Atrial fibrillation with a rapid ventricular response, early precordial transition, and nondiagnostic repolarization abnormalities, probably rate related. CXR Results 01/19/2018: No acute cardiopulmonary process. Other Results Bilateral lower extremity ultrasound 01/19/2018: Normal triplex scan without evidence of deep venous thrombosis involving the lower extremities. CT abdomen/pelvis 01/19/2018 1. Markedly hypoattenuating liver compatible with hepatic steatosis. No focal hepatic lesions. No evidence of intra or extrahepatic biliary ductal dilatation post cholecystectomy. 2. Status post gastric bypass without evidence of anastomotic obstruction. 3. Few sigmoid diverticula without diverticulitis. Abdomen and pelvis through : Assessment/Plan Assessment/Plan [id number] w/ hx of former tobacco use, obesity s/p bariatric surgery (gastric bypass), HTN, & SVT s/p catheter ablation in March 2016 at [facility] (Eliot Rodriguez M.D.) who presented w/ c/decreased appetite, weakness, and paroxysms of coughing , dry heaves, abdominal pain 2/2 her inability to mobilize phlegm that lodges in her throat that has been occurring since December 2017 & sought medical attention after experiencing 3 such episodes this morning when she was discovered to be in AF w/ a RVR that has not responded well, thus far, to repeat boluses of IV metoprolol. It is not clear what, if any, association there is between her paroxysms of coughing and the discovery of the atrial fibrillation, but this may become more clear over time. For now, we need to get the ventricular response to her atrial fibrillation controlled, get her on appropriate anticoagulation as needed, and exclude reversible causes for the atrial fibrillation. Recommendations: * Admit to telemetry, follow-up troponins, follow-up ECGs. * Initiate treatment with verapamil. Start with an IV bolus of 5-10 mg over at least 2 minutes and then start a continuous infusion at 5 mg/hour and titrate up as needed. * Obtain an echocardiogram to assess her left ventricular function, degree of left ventricular hypertrophy, atrial size, etc. * Screen for obstructive sleep apnea with overnight oximetry. * Continue IV unfractionated heparin and consider initiation of a N0AC tomorrow, given her [id number] Score of 2 (HTN, female gender). * Correct EMR and has her on 2 beta blockers at home (nebivolol, metoprolol). * Hold RENETTA inhibitor for the short-term, while we assess her blood pressure response to the verapamil infusion. * Head back the beta sushila she was on at home after reassess her ventricular and blood pressure responses to the verapamil infusion. * DVT prophylaxis being addressed by the unfractionated heparin for the atrial fibrillation. Further recommendations will follow, Thank you. Consult Acknowledgment - Thank you for your consult request.
[2018-01-19 22:25] VITALS: BP 134/78
[2018-01-19 23:02] LABS: PTT 107 SEC (25-37)
[2018-01-20] VITALS (9 sets, daily range): BP systolic 98–128; BP diastolic 60–90
--- NOTE | 2018-01-20 05:18 | Event Note ---
Event Note Event Note: Situation: Persistent heart rate in the 150-160s. Background: Ms Langston is a 62 yo F who was admitted earlier today for A.fib with RVR. Per cardiology a decision was made to start the patient on Verapamil drip after a bolus was administered. As the hospital does not have a protocol for Verapamil drip, the patient was transferred to the ICU for closer monitoring. She was started on a Verapamil drip @5mg/hr with increase by 0.5mg/hr. Overnight the patient did well with heart rate controlled in 90s-115.
[2018-01-20 05:19] LABS: ABSOLUTE BASOPHIL COUNT 0 /CUMM (0.0-0.2); ABSOLUTE EOSINOPHIL COUNT 0.1 /CUMM (0.0-0.7); ABSOLUTE GRANULOCYTE CT 3.9 /CUMM (1.4-6.5); ABSOLUTE LYMPH COUNT 1.3 /CUMM (1.2-3.4); ABSOLUTE MONOCYTE COUNT 0.7 /CUMM (0.10-0.60); BASOPHIL % 0.5 % (0.0-2.0); EOSINOPHIL % 1.7 % (0-5); GRANULOCYTE % 64.4 % (42.2-75.2); MEAN CORPUSCULAR HGB 35.2 PG (27.0-31.0); MEAN CORPUSCULAR HGB CONC 33.5 G/DL (33.0-37.0); MEAN CORPUSCULAR VOLUME 105.1 FL (81.0-99.0); MEAN PLATELET VOLUME 8.8 FL (7.4-10.4); PLATELET COUNT 92 /CUMM (130-400); RBC DISTRIBUTION WIDTH 13.4 % (11.5-14.5); WHITE BLOOD CELL COUNT 6.1 /CUMM (4.8-10.8)
[2018-01-20 05:24] LABS: HEMATOCRIT 31.5 % (37-47)
[2018-01-20 05:57] LABS: PTT 56 SEC (25-37)
--- NOTE | 2018-01-20 07:44 | PN- Housestaff ---
Isabel NICE,Peggy 01/20/18 0743: Subjective Follow-up For: Atrial Fibrillation with RVR Alcohol Withdrawl Transaminitis Subjective: Patient remains asymptomatic. No acute complaints other than the cough which is getting better. Review of Systems Constitutional: Reports: no symptoms. Objective Last 24 Hrs of Vital Signs/I&O Vital Signs Date Time Temp Pulse Resp B/P B/P Pulse O2 O2 Flow FiO2 Mean Ox Delivery Rate 01/21 0600 110 18 110/68 01/21 0400 98.5 133 20 120/64 01/21 0200 119 23 127/72 01/21 0120 120 18 117/79 01/21 0000 130 20 116/60 01/20 2300 98.9 125 19 116/60 98 Room Air Room Air 01/20 2200 110 16 99/69 01/20 2118 120 19 112/64 01/20 2000 99.3 129 26 118/70 01/20 2000 98 Room Air Room Air 01/20 1600 98.6 105 25 98/60 100 Room Air 01/20 0800 99.0 104 21 126/88 98 Room Air Intake & Output 01/21 0800 01/21 0000 01/20 1600 Intake Total 727 190 7443 Output Total 600 500 600 Balance 9 96 558 Intake, IV 249 226 258 Intake, Oral 360 370 900 Number 1 0 0 Bowel Movements Output, Urine 600 500 600 Patient 279 lb Weight Weight Bed scale Measurement Method Physical Exam General Appearance: Alert, Oriented X3, Cooperative, No Acute Distress Skin: No Rashes, No Breakdown Cardiovascular: Normal S1, Normal S2, Irregular Lungs: Normal Air Movement Abdomen: Normal Bowel Sounds, Soft, No Tenderness Extremities: No Clubbing, No Cyanosis Current Medications: Current Medications Sig/Antwon Start time Last Medication Dose Route Stop Time Status Admin Acetaminophen 650 MG Q6P PRN 01/19 1500 AC 01/19 PO 2241 Apixaban 5 MG BID 01/20 1344 AC 01/20 PO 2118 Aripiprazole 2 MG DAILY 01/20 0900 AC 01/20 PO 1012 Benzocaine/Menthol 1 LLOYD Q2P PRN 01/20 1345 AC PO Benzocaine/Menthol 1 LLOYD Q2P PRN 01/20 1045 DC PO Benzocaine/Menthol 1 LLOYD Q2P PRN 01/19 2330 DC 01/20 PO 1259 Famotidine 20 MG BID 01/19 2100 AC 01/20 PO 2118 Folic Acid 1 MG DAILY 01/20 0900 AC 01/20 PO 1012 Heparin Sodium 25,000 UNIT Q24H 01/19 1345 DC 01/19 (Porcine) IV 1421 Sodium Chloride 500 ML Lorazepam 0 Q1P PRN 01/19 1600 AC IV Metoprolol Tartrate 25 MG BID 01/19 2100 AC 01/20 PO 2118 Multivitamins 1 TAB DAILY 01/20 0900 AC 01/20 PO 1012 Potassium Chloride 40 MEQ ONCE ONE 01/21 0615 DC 01/21 PO 01/21 0616 0638 Thiamine HCl 100 MG DAILY 01/20 0900 AC 01/20 PO 1012 Verapamil HCl 50 MG Q8H 01/21 0930 AC Sodium Chloride 80 ML IV Verapamil HCl 25 MG Q8H 01/21 0900 DC Sodium Chloride 40 ML IV 01/21 1104 Verapamil HCl 25 MG Q8H 01/21 0900 AC Sodium Chloride 40 ML IV 01/21 1309 Verapamil HCl 50 MG Q9H 01/20 1700 DC 01/21 Sodium Chloride 80 ML IV 01/21 0929 0120 Verapamil HCl 50 MG Q10H 01/19 2359 DC 01/20 Sodium Chloride 80 ML IV 1013 Last 24 Hrs of Lab/[place] Results Last 24 Hrs of Labs/Mics: Laboratory Tests 01/21/18 0424: Anion Gap 7, Estimated GFR > 60, Glucose 84, Calcium 8.5, Phosphorus 2.2 L, Magnesium 1.8, Total Bilirubin 2.5 H, AST 62 H, ALT 67 H, Albumin 2.7 L, CBC w Diff NO MAN DIFF REQ, RBC 2.99 L, MCV 104.8 H, MCH 35.6 H, MCHC 34.0, RDW 13.3, Gran % 75.3 H, Lymphocytes % 14.4 L, Monocytes % 9.2, Eosinophils % 0.8, Basophils % 0.3, Absolute Granulocytes 6.2, Absolute Lymphocytes 1.2, Absolute Monocytes 0.8 H, Absolute Eosinophils 0.1, Absolute Basophils 0 01/21/18 0015: APTT 66 H 01/20/18 1215: APTT 71 H Assessment/Plan Assessment: 62 YO obese F ex-smoker with PMH of HTN, GERD, depression, gastric bypass and SVT status post ablation came to ED with chief complaint of generalized weakness , decreased appetite, abdominal discomfort and cough for last couple of days. Paln; 1. Atrial fibrillation with rapid ventricle response: - Patient was started on verapamil drip(Cardizem not available due to national shortage) last night for heart rate control, which remained between 150s to 160s , and was transferred to ICU for closer monitoring,(as the hospital does not have a protocol for verapamil drip). - Continue metoprolol 25 mg twice a day. - Discontinue heparin drip and start the pt on Eliquis 5mg BID. - Echocardiogram shows borderline concentric left ventricular hypertrophy with mildly reduced global left ventricular systolic function with ejection fraction estimated at 40-45%. Alcohol withdrawal: - Patient has history of alcohol abuse - IV ativan per [facility] protocol - Continue Thiamine and Folic acid supplementation Transient transaminitis: - Probably due to alcoholic liver disease Thrombocytopenia: -Probably due to alcoholic liver disease -Continue monitoring platelet count, Dropped further from 115 to 92. -Avoid any medication that decreases platelet count of function. History of Hypertension: -Continue her home medications History of GERD and gastric bypass: -Continue omeprazole History of depression: -Continue home medications DVT prophylaxis: Mechanical and the subcutaneous heparin Code Status: Full code Problem List: 1. Rapid atrial fibrillation 2. Alcohol withdrawal 3. Transaminitis Pain Ratin Pain Location: None Pain Goal: Remain pain free Pain Plan: NA Tomorrow's Labs & Rationales: CBC(Thrombocytopenia) ICU Bundle Rishabh Madrigal MD 01/20/18 1043: Attending MD Review Statement Attending Statement Attending MD Statement: examined this patient, discuss w/resident/PA/COIN COUNTER AND WRAPPER, agreed w/resident/PA/COIN COUNTER AND WRAPPER, reviewed EMR data (avail) Attending Assessment/Plan: 62F PMH SVT s/p ablation (2016), morbid obesity, anxiety, depression, hypertension, and hyperlipidemia presenting with a several month history of persistent cough with white sputum, episodes of coughing fits, and a sensation of chest congestion, came to ER and was found to be in new onset rapid atrial fibrillation with RVR, transferred to ICU for Verapamil drip (Cardizem drip was unavailable). Patient is doing well today. She feels better than yesterday and her cough is improving. She has no sensation of her afib and denies chest pain, lightheadedness, or palpitations. She is currently in afib in the 120s. Labs reviewed, exam benign. 1. New onset rapid atrial fibrillation with RVR 2. Cough Plan - Continue in ICU - Would increase Verapamil drip if possible - Start Eliquis, discontinue heparin drip - Continue Metoprolol - Continue remaining home medications excluding ACEi, which we will continue to hold - Echocardiogram - Follow cardiology recommendations - Start lozanges for cough - DVT PPx
[2018-01-20 12:56] LABS: PTT 71 SEC (25-37)
--- NOTE | 2018-01-20 13:21 | ECHOCARDIOGRAM REPORT ---
DEWEY HOLCOMB Age: 62 : 1955 Gender: F Exam Date: 01/20/2018 10:33 Exam Location: [facility] Ht (in): 66 Wt (lb): 265 BSA: 2.43 BP: 150 / 79 Ordering Physician: Steve Alex MD Referring Physician: Redd Linn MD Technologist: Gabriella Mcgee Room Number: [id number] Indications: AFIB/FLUTTER Rhythm: Atrial fibrillation Technical Quality: Fair FINDINGS Left Ventricle Normal size left ventricle. Borderline concentric left ventricular hypertrophy. Mildly reduced global left ventricular systolic function. Mildly abnormal left ventricular ejection fraction estimated at 40-45%. Right Ventricle Normal right ventricular size and function. Right Atrium Mild to moderate right atrial dilatation. Left Atrium Mild to moderate left atrial dilatation. Mitral Valve Mild mitral regurgitation. Moderate mitral regurgitation. Aortic Valve Trileaflet aortic valve. Minimal aortic sclerosis. No aortic valve stenosis or regurgitation. Tricuspid Valve Structurally normal tricuspid valve. Moderate tricuspid regurgitation. Mild pulmonary hypertension. Right ventricular systolic pressure estimated to be elevated at 38 mmHg. Pulmonic Valve Pulmonic valve not well visualized, grossly normal. Trace pulmonic regurgitation. Pericardium No pericardial effusion. Great Vessels Mildly dilated proximal ascending aorta (tube). CONCLUSIONS Normal size left ventricle. Borderline concentric left ventricular hypertrophy. Mildly reduced global left ventricular systolic function. Mildly abnormal left ventricular ejection fraction estimated at 40- 45%. Normal right ventricular size and function. Mild to moderate atrial dilatation. Moderate mitral regurgitation. No aortic valve stenosis or regurgitation. Moderate tricuspid regurgitation. Mild pulmonary hypertension. Trace pulmonic regurgitation. Mildly dilated proximal ascending aorta (tube). Redd Linn M.D. (Electronically Signed) Final Date: 20 January 2018 13:21 MEASUREMENTS (Male / Female) Normal Values 2D ECHO LV Diastolic Diameter PLAX 4.4 cm 4.2 - 5.9 / 3.9 - 5.3 cm LV Systolic Diameter PLAX 3.4 cm 2.1 - 4.0 cm LV Fractional Shortening PLAX 22.7 % 25 - 46 % LV Ejection Fraction 2D Teich 45.9 % IVS Diastolic Thickness 1.0 cm LVPW Diastolic Thickness 1.1 cm LV Relative Wall Thickness 0.5 RV Internal Dim ED PLAX 3.3 cm 1.9 - 3.8 cm LVOT Diameter 1.8 cm LA Systolic Diameter LX 5.4 cm 3.0 - 4.0 / 2.7 - 3.8 cm LA Volume 72.0 cm 18 - 58 / 22 - 52 cm Ascending Aorta Diameter 3.8 cm DOPPLER AV Peak Velocity 126.0 cm/s AV Peak Gradient 6.4 mmHg AV Mean Velocity 99.1 cm/s AV Mean Gradient 4.0 mmHg AV Velocity Time Integral 21.5 cm LVOT Peak Velocity 75.8 cm/s LVOT Peak Gradient 2.3 mmHg LVOT Mean Velocity 54.3 cm/s LVOT Mean Gradient 1.0 mmHg LVOT Velocity Time Integral 10.3 cm LVOT Stroke Volume 26.2 cm AV Area Cont Eq vti 1.2 cm AV Area Cont Eq pk 1.5 cm TR Peak Velocity 262.0 cm/s TR Peak Gradient 27.5 mmHg Right Atrial Pressure 10.0 mmHg Pulmonary Artery Systolic Pressu 37.5 mmHg Right Ventricular Systolic Press 37.5 mmHg PV Peak Velocity 82.7 cm/s PV Peak Gradient 2.7 mmHg PV Mean Velocity 56.5 cm/s PV Mean Gradient 1.0 mmHg PV Velocity Time Integral 8.5 cm
--- NOTE | 2018-01-20 20:32 | PN- Cardiology ---
Subjective Subjective: No specific complaints. Objective Vital Signs and I&Os Vital Signs Date Time Temp Pulse Resp B/P B/P Pulse O2 O2 Flow FiO2 Mean Ox Delivery Rate 01/20 1600 98.6 105 25 98/60 100 Room Air 01/20 0800 99.0 104 21 126/88 98 Room Air 01/20 0600 98.1 108 16 115/85 01/20 0400 98.1 102 20 125/81 01/20 0200 98.4 118 18 128/82 01/20 0010 98.4 01/20 0010 145 135/100 01/20 0000 98.4 128 18 128/90 01/20 0000 98.4 128 18 128/90 99 Room Air Room Air 01/19 2358 148 124/00 01/19 2241 100.8 01/19 2225 100.6 144 18 134/78 98 Room Air 01/19 2045 146 110/72 Intake & Output 01/20 1600 01/20 0800 01/20 0000 01/19 1600 01/19 0800 01/19 0000 Intake Total 1158 723 313 3909 Output Total 600 100 Balance 558 553 652 2496 Intake, IV 856 141 5844 Intake, Oral 900 120 200 Number 0 0 Bowel Movements Output, Urine 600 100 Patient 271 lb 278 lb 265 lb Weight Weight Bed scale Reported by Patient Measurement Method Physical Exam: Neck: No JVD, no bruits. Lungs: Clear to auscultation bilaterally. Heart: S1, S2 (irregularly, irregular). Abdomen: Soft, nontender, positive bowel sounds. Extremities: No edema. Current Medications: Current Medications Sig/Antwon Start time Last Medication Dose Route Stop Time Status Admin Acetaminophen 650 MG Q6P PRN 01/19 1500 AC 01/19 PO 2241 Apixaban 5 MG BID 01/20 1344 AC 01/20 PO 1542 Aripiprazole 2 MG DAILY 01/20 0900 AC 01/20 PO 1012 Benzocaine/Menthol 1 LLOYD Q2P PRN 01/20 1345 AC PO Benzocaine/Menthol 1 LLOYD Q2P PRN 01/20 1045 DC PO Benzocaine/Menthol 1 LLOYD Q2P PRN 01/19 2330 DC 01/20 PO 1259 Famotidine 20 MG BID 01/19 2100 AC 01/20 PO 1012 Folic Acid 1 MG DAILY 01/20 0900 AC 01/20 PO 1012 Heparin Sodium 4,728 UNIT ONCE ONE 01/20 0630 DC 01/20 (Porcine) IV 01/20 0631 0630 Heparin Sodium 25,000 UNIT Q24H 01/19 1345 DC 01/19 (Porcine) IV 1421 Sodium Chloride 500 ML Lisinopril 40 MG DAILY 01/20 0900 CAN PO Lorazepam 0 Q1P PRN 01/19 1600 AC IV Magnesium Sulfate 1 GM ONCE ONE 01/19 204 CAN Dextrose/Water 100 ML IV 01/20 0044 Magnesium Sulfate 1 GM Q2H 01/19 2045 DC 01/20 Dextrose/Water 100 ML IV 01/20 0044 0014 Metoprolol Tartrate 25 MG BID 01/19 2100 AC 01/20 PO 1012 Multivitamins 1 TAB DAILY 01/20 0900 AC 01/20 PO 1012 Non-Formulary 0 SEE ADMIN CRITERIA 01/19 2330 CAN Medication ANY Thiamine HCl 100 MG DAILY 01/20 0900 AC 01/20 PO 1012 Verapamil HCl 50 MG Q9H 01/20 1700 AC Sodium Chloride 80 ML IV Verapamil HCl 50 MG Q10H 01/19 2359 DC Sodium Chloride 100 ML IV Verapamil HCl 50 MG Q10H 01/19 2359 DC 01/20 Sodium Chloride 80 ML IV 1013 Verapamil HCl 5 MG ONE ONE 01/19 2315 DC 01/19 IV 01/19 2316 2358 Results Last 48 Hrs of Labs/Mics: Laboratory Tests 01/20/18 1215: APTT 71 H 01/20/18 0505: Anion Gap 10, Estimated GFR > 60, BUN/Creatinine Ratio 11.1, Magnesium 2.1, APTT 56 H, CBC w Diff NO MAN DIFF REQ, RBC 3.00 L, MCV 105.1 H, MCH 35.2 H, MCHC 33.5, RDW 13.4, MPV 8.8, Gran % 64.4, Lymphocytes % 21.9, Monocytes % 11.5 H, Eosinophils % 1.7, Basophils % 0.5, Absolute Granulocytes 3.9, Absolute Lymphocytes 1.3, Absolute Monocytes 0.7 H, Absolute Eosinophils 0.1, Absolute Basophils 0 01/19/18 2252: Lactic Acid 1.3 01/19/18 2215: Troponin I < 0.01, APTT 107 *H 01/19/18 1617: Troponin I < 0.01 01/19/18 1025: Anion Gap 12, Estimated GFR > 60, BUN/Creatinine Ratio 11.1, Glucose 93, Calcium 8.2 L, Magnesium 1.5 L, Total Bilirubin 3.1 H, Direct Bilirubin 1.4 H, AST 149 H, ALT 97 H, Alkaline Phosphatase 109, Troponin I < 0.01, Pro-B- Natriuretic Pept 3620 H, Total Protein 6.9, Albumin 3.1 L, Globulin 3.8, Albumin/Globulin Ratio 0.8 L, TSH 5.510 H, Free T4 1.74, PT 12.6 H, INR 1.15, APTT 32, D-Dimer High Sensitivty 474 H, CBC w Diff NO MAN DIFF REQ, RBC 3.63 L , MCV 103.8 H, MCH 35.4 H, MCHC 34.1, RDW 13.7, MPV 9.1, Gran % 79.0 H, Lymphocytes % 9.1 L, Monocytes % 11.0 H, Eosinophils % 0.4, Basophils % 0.5, Absolute Granulocytes 5.3, Absolute Lymphocytes 0.6 L, Absolute Monocytes 0.7 H, Absolute Eosinophils 0, Absolute Basophils 0, Hepatitis A IgM Ab NONREACTIVE, Hep Bs Antigen NONREACTIVE, Hep B Core IgM Ab Conf NONREACTIVE, Hepatitis C Antibody NONREACTIVE, Serum Alcohol < 10.0 Recent Imaging Studies: Echocardiogram 01/19/2018: Normal size left ventricle. Borderline concentric left ventricular hypertrophy. Mildly reduced global left ventricular systolic function. Mildly abnormal left ventricular ejection fraction estimated at 40- 45%. Normal right ventricular size and function. Mild to moderate atrial dilatation. Moderate mitral regurgitation. No aortic valve stenosis or regurgitation. Moderate tricuspid regurgitation. Mild pulmonary hypertension. Trace pulmonic regurgitation. Mildly dilated proximal ascending aorta (tube). Assessment/Plan Assessment/Plan [id number] w/ hx of former tobacco use, obesity s/p bariatric surgery (gastric bypass), HTN, & SVT s/p catheter ablation in March 2016 at [facility] (Eliot Rodriguez M.D.) who presented w/ c/o decreased appetite, weakness, and paroxysms of coughing, dry heaves, abdominal pain 2/2 her inability to mobilize phlegm that lodges in her throat that has been occurring since December 2017 & sought medical attention after experiencing 3 such episodes on the morning of 01/18/2018 when she was discovered to be in AF w/ a RVR that has not responded better to IV verapamil, but is not yet adequately controlled. Recommendations: * Continue ICU admission and titrate up the IV verapamil, as her blood pressure tolerates, to a total of 7.5 mg/hour if needed. * Once we get a adequate rate control, would switch to an oral beta sushila or diltiazem. * DVT prophylaxis was being addressed by the [facility] and will be switched over to a NOAC. Continue telemetry? Not applicable (IN icu.)
[2018-01-21] VITALS (8 sets, daily range): BP systolic 91–127; BP diastolic 60–72
[2018-01-21 01:12] LABS: PTT 66 SEC (25-37)
[2018-01-21 05:01] LABS: ABSOLUTE BASOPHIL COUNT 0 /CUMM (0.0-0.2); ABSOLUTE EOSINOPHIL COUNT 0.1 /CUMM (0.0-0.7); ABSOLUTE GRANULOCYTE CT 6.2 /CUMM (1.4-6.5); ABSOLUTE LYMPH COUNT 1.2 /CUMM (1.2-3.4); ABSOLUTE MONOCYTE COUNT 0.8 /CUMM (0.10-0.60); BASOPHIL % 0.3 % (0.0-2.0); EOSINOPHIL % 0.8 % (0-5); GRANULOCYTE % 75.3 % (42.2-75.2); HEMATOCRIT 31.4 % (37-47); MEAN CORPUSCULAR HGB 35.6 PG (27.0-31.0); MEAN CORPUSCULAR VOLUME 104.8 FL (81.0-99.0); RBC DISTRIBUTION WIDTH 13.3 % (11.5-14.5); RED BLOOD CELL CT 2.99 /CUMM (4.20-5.40); WHITE BLOOD CELL COUNT 8.3 /CUMM (4.8-10.8)
--- NOTE | 2018-01-21 11:29 | PN- Housestaff ---
Isabel NICE,Peggy 01/21/18 1129: Subjective Follow-up For: Atrial Fibrillation Alcohol Withdrawl Transaminitis Review of Systems Constitutional: Reports: no symptoms. Objective Last 24 Hrs of Vital Signs/I&O Vital Signs Date Time Temp Pulse Resp B/P B/P Pulse O2 O2 Flow FiO2 Mean Ox Delivery Rate 01/21 0903 130 100/70 01/21 0600 110 18 110/68 01/21 0400 98.5 133 20 120/64 01/21 0200 119 23 127/72 01/21 0120 120 18 117/79 01/21 0000 130 20 116/60 01/20 2300 98.9 125 19 116/60 98 Room Air Room Air 01/20 2200 110 16 99/69 01/20 2118 120 19 112/64 01/20 2000 99.3 129 26 118/70 01/20 2000 98 Room Air Room Air 01/20 1600 98.6 105 25 98/60 100 Room Air Intake & Output 01/21 1600 01/21 0800 01/21 0000 Intake Total 609 596 Output Total 600 500 Balance 9 96 Intake, IV 249 226 Intake, Oral 360 370 Number 1 0 Bowel Movements Output, Urine 600 500 Patient 279 lb Weight Weight Bed scale Measurement Method Physical Exam General Appearance: Alert, Oriented X3, Cooperative, No Acute Distress Skin: No Rashes, No Breakdown Cardiovascular: Normal S1, Normal S2, Irregular Lungs: Clear to Auscultation, Normal Air Movement Abdomen: Normal Bowel Sounds, Soft, No Tenderness Extremities: No Clubbing, No Cyanosis, No Edema Current Medications: Current Medications Sig/Antwon Start time Last Medication Dose Route Stop Time Status Admin Acetaminophen 650 MG Q6P PRN 01/19 1500 AC 01/19 PO 2241 Apixaban 5 MG BID 01/20 1344 AC 01/21 PO 0903 Aripiprazole 2 MG DAILY 01/20 0900 AC 01/21 PO 0903 Benzocaine/Menthol 1 LLOYD Q2P PRN 01/20 1345 AC PO Benzocaine/Menthol 1 LLOYD Q2P PRN 01/20 1045 DC PO Benzocaine/Menthol 1 LLOYD Q2P PRN 01/19 2330 DC 01/20 PO 1259 Famotidine 20 MG BID 01/19 2100 AC 01/21 PO 0903 Folic Acid 1 MG DAILY 01/20 0900 AC 01/21 PO 0903 Heparin Sodium 25,000 UNIT Q24H 01/19 1345 DC 01/19 (Porcine) IV 1421 Sodium Chloride 500 ML Lorazepam 0.5 MG DAILY PRN 01/21 0930 AC 01/21 PO 01/28 09 0930 Lorazepam 0 Q1P PRN 01/19 1600 AC IV Magnesium Sulfate 1 GM Q2H 01/21 0900 AC Dextrose/Water 100 ML IV 01/21 1259 Metoprolol Tartrate 25 MG BID 01/19 2100 AC 01/21 PO 0903 Multivitamins 1 TAB DAILY 01/20 0900 AC 01/21 PO 0903 Potassium Chloride 40 MEQ ONCE ONE 01/21 0900 CAN PO 01/21 09 Potassium Chloride 40 MEQ ONCE ONE 01/21 0615 DC 01/21 PO 01/21 0616 0638 Thiamine HCl 100 MG DAILY 01/20 0900 AC 01/21 PO 0903 Verapamil HCl 50 MG Q8H 01/21 930 AC Sodium Chloride 80 ML IV Verapamil HCl 25 MG Q8H 01/21 09 DC Sodium Chloride 40 ML IV 01/21 1104 Verapamil HCl 25 MG Q8H 01/21 09 AC Sodium Chloride 40 ML IV 01/21 1309 Verapamil HCl 50 MG Q9H 01/20 1700 DC 01/21 Sodium Chloride 80 ML IV 01/21 0929 0120 Verapamil HCl 50 MG Q10H 01/19 2359 DC 01/20 Sodium Chloride 80 ML IV 1013 Last 24 Hrs of Lab/[place] Results Last 24 Hrs of Labs/Mics: Laboratory Tests 01/21/18 0424: Anion Gap 7, Estimated GFR > 60, Glucose 84, Calcium 8.5, Phosphorus 2.2 L, Magnesium 1.8, Total Bilirubin 2.5 H, AST 62 H, ALT 67 H, Albumin 2.7 L, CBC w Diff NO MAN DIFF REQ, RBC 2.99 L, MCV 104.8 H, MCH 35.6 H, MCHC 34.0, RDW 13.3, Gran % 75.3 H, Lymphocytes % 14.4 L, Monocytes % 9.2, Eosinophils % 0.8, Basophils % 0.3, Absolute Granulocytes 6.2, Absolute Lymphocytes 1.2, Absolute Monocytes 0.8 H, Absolute Eosinophils 0.1, Absolute Basophils 0 01/21/18 0015: APTT 66 H 01/20/18 1215: APTT 71 H Assessment/Plan Assessment: 62 YO obese F ex-smoker with PMH of HTN, GERD, depression, gastric bypass and SVT status post ablation came to ED with chief complaint of generalized weakness , decreased appetite, abdominal discomfort and cough for last couple of days. Paln; 1. Atrial fibrillation with rapid ventricle response: - Patient remains on IV verapamil drip,Heart rate remains in 120s-130s and Verapamil increased from 6mg/hr to 6.5mg/hr this am. - Continue metoprolol 25 mg twice a day. - Continue Eliquis 5mg BID. - Echocardiogram shows borderline concentric left ventricular hypertrophy with mildly reduced global left ventricular systolic function with ejection fraction estimated at 40-45%. Alcohol withdrawal: - Patient has history of alcohol abuse - IV ativan per [facility] protocol, CIWA scores remain 0 since admission. - Continue Thiamine and Folic acid supplementation Transient transaminitis: - Probably due to alcoholic liver disease Thrombocytopenia: -Probably due to alcoholic liver disease -Continue monitoring platelet count, Dropped further from 115 to 92. -Avoid any medication that decreases platelet count of function. History of Hypertension: -Continue her home medications History of GERD and gastric bypass: -Continue omeprazole History of depression: -Continue home medications DVT prophylaxis: Mechanical and the subcutaneous heparin Code Status: Full code Problem List: 1. Rapid atrial fibrillation 2. Transaminitis 3. Alcohol withdrawal Pain Ratin Pain Location: None Pain Goal: Remain pain free Pain Plan: NA Tomorrow's Labs & Rationales: CBC(thrombocytopenia) icu bundle Rishabh Madrigal MD 01/21/18 1402: Attending MD Review Statement Attending Statement Attending MD Statement: examined this patient, discuss w/resident/PA/COKEMAN, agreed w/resident/PA/COKEMAN, reviewed EMR data (avail) Attending Assessment/Plan: 62F PMH SVT s/p ablation (2016), morbid obesity, anxiety, depression, hypertension, and hyperlipidemia presenting with a several month history of persistent cough with white sputum, episodes of coughing fits, and a sensation of chest congestion, came to ER and was found to be in new onset rapid atrial fibrillation with RVR, transferred to ICU for Verapamil drip (Cardizem drip was unavailable). Patient is doing well today. She feels better than yesterday and her cough is improving. She has no sensation of her afib and denies chest pain, lightheadedness, or palpitations. She is currently in afib in the 120s. Labs reviewed, exam benign. 1. New onset rapid atrial fibrillation with RVR 2. Cough Plan - Continue in ICU - Would increase Verapamil drip if possible - Continue Eliquis - Continue Metoprolol - Continue remaining home medications excluding ACEi, which we will continue to hold - Echocardiogram - Follow cardiology recommendations - DVT PPx
--- NOTE | 2018-01-21 19:26 | PN- Cardiology ---
Subjective Subjective: No specific complaints. Remains in atrial fibrillation on monitoring with a ventricular response in the 120 bpm range. Objective Vital Signs and I&Os Vital Signs Date Time Temp Pulse Resp B/P B/P Pulse O2 O2 Flow FiO2 Mean Ox Delivery Rate 01/21 1600 99.5 130 20 126/70 98 Room Air 01/21 1515 130 102/60 01/21 1100 130 100/70 01/21 0903 130 100/70 01/21 0800 97.9 120 18 100/70 98 Room Air 01/21 0600 110 18 110/68 01/21 0400 98.5 133 20 120/64 01/21 0200 119 23 127/72 01/21 0120 120 18 117/79 01/21 0000 130 20 116/60 01/20 2300 98.9 125 19 116/60 98 Room Air Room Air 01/20 2200 110 16 99/69 01/20 2118 120 19 112/64 01/20 2000 99.3 129 26 118/70 01/20 2000 98 Room Air Room Air Intake & Output 01/21 1600 01/21 0800 01/21 0000 01/20 1600 01/20 0800 01/20 0000 Intake Total 731 718 962 6408 315 200 Output Total 600 500 600 100 Balance 731 9 96 558 215 200 Intake, IV 31 249 226 258 195 Intake, Oral 700 360 370 900 120 200 Number 1 1 0 0 0 Bowel Movements Output, Urine 600 500 600 100 Patient 279 lb 271 lb 278 lb Weight Weight Bed scale Bed scale Measurement Method Physical Exam: Neck: No JVD, no bruits. Lungs: Clear to auscultation bilaterally. Heart: S1, S2 (irregularly, irregular). Abdomen: Soft, nontender, positive bowel sounds. Extremities: No edema. Current Medications: Current Medications Sig/Antwon Start time Last Medication Dose Route Stop Time Status Admin Acetaminophen 650 MG Q6P PRN 01/19 1500 AC 01/19 PO 2241 Apixaban 5 MG BID 01/20 1344 AC 01/21 PO 0903 Aripiprazole 2 MG DAILY 01/20 0900 AC 01/21 PO 0903 Benzocaine/Menthol 1 LLOYD Q2P PRN 01/20 1345 AC PO Desvenlafaxine 100 MG DAILY 01/21 1630 AC Succinate PO Famotidine 20 MG BID 01/19 2100 AC 01/21 PO 0903 Folic Acid 1 MG DAILY 01/20 09 AC 01/21 PO 0903 Lorazepam 0.5 MG DAILY PRN 01/21 0930 AC 01/21 PO 01/28 0929 0930 Lorazepam 0 Q1P PRN 01/19 1600 AC IV Magnesium Sulfate 1 GM Q2H 01/21 09 DC 01/21 Dextrose/Water 100 ML IV 01/21 1259 1259 Metoprolol Tartrate 25 MG BID 01/19 2100 AC 01/21 PO 0903 Multivitamins 1 TAB DAILY 01/20 09 AC 01/21 PO 0903 Potassium Chloride 40 MEQ ONCE ONE 01/21 900 CAN PO 01/21 09 Potassium Chloride 40 MEQ ONCE ONE 01/21 0615 DC 01/21 PO 01/21 0616 0638 Thiamine HCl 100 MG DAILY 01/20 900 AC 01/21 PO 09 Verapamil HCl 50 MG Q6H 01/22 2000 AC Sodium Chloride 80 ML IV Verapamil HCl 50 MG Q8H 01/21 930 AC 01/21 Sodium Chloride 80 ML IV 01/22 2000 1515 Verapamil HCl 25 MG Q8H 01/21 900 DC Sodium Chloride 40 ML IV 01/21 1104 Verapamil HCl 25 MG Q8H 01/21 900 DC Sodium Chloride 40 ML IV 01/21 1309 Verapamil HCl 50 MG Q9H 01/20 1700 DC 01/21 Sodium Chloride 80 ML IV 01/21 0929 0120 Results Last 48 Hrs of Labs/Mics: Laboratory Tests 01/21/18 1200: APTT Cancelled 01/21/18 0424: Anion Gap 7, Estimated GFR > 60, Glucose 84, Calcium 8.5, Phosphorus 2.2 L, Magnesium 1.8, Total Bilirubin 2.5 H, AST 62 H, ALT 67 H, Albumin 2.7 L, CBC w Diff NO MAN DIFF REQ, RBC 2.99 L, MCV 104.8 H, MCH 35.6 H, MCHC 34.0, RDW 13.3, Gran % 75.3 H, Lymphocytes % 14.4 L, Monocytes % 9.2, Eosinophils % 0.8, Basophils % 0.3, Absolute Granulocytes 6.2, Absolute Lymphocytes 1.2, Absolute Monocytes 0.8 H, Absolute Eosinophils 0.1, Absolute Basophils 0 01/21/18 0015: APTT 66 H 01/20/18 1215: APTT 71 H 01/20/18 0505: Anion Gap 10, Estimated GFR > 60, BUN/Creatinine Ratio 11.1, Magnesium 2.1, APTT 56 H, CBC w Diff NO MAN DIFF REQ, RBC 3.00 L, MCV 105.1 H, MCH 35.2 H, MCHC 33.5, RDW 13.4, MPV 8.8, Gran % 64.4, Lymphocytes % 21.9, Monocytes % 11.5 H, Eosinophils % 1.7, Basophils % 0.5, Absolute Granulocytes 3.9, Absolute Lymphocytes 1.3, Absolute Monocytes 0.7 H, Absolute Eosinophils 0.1, Absolute Basophils 0 01/19/18 2252: Lactic Acid 1.3 01/19/18 2215: Troponin I < 0.01, APTT 107 *H Microbiology 01/20 0030 UPPER RESP: Surveillance Culture - COMP Assessment/Plan Assessment/Plan [id number]-f w/ hx of former tobacco use, obesity s/p bariatric surgery (gastric bypass), HTN, & SVT s/p catheter ablation in March 2016 at [facility] (Eliot Rodriguez M.D.) who presented w/ c/o decreased appetite, weakness, and paroxysms of coughing, dry heaves, abdominal pain 2/2 her inability to mobilize phlegm that lodges in her throat that has been occurring since December 2017 & sought medical attention after experiencing 3 such episodes on the morning of 01/18/2018 when she was discovered to be in AF w/ a RVR that has not responded better to IV verapamil, but is not yet adequately controlled. Recommendations: * Increase metoprolol from 25 mg twice daily to 50 mg twice daily as blood pressure tolerates. * Continue IV verapamil. * Patient reportedly takes both metoprolol and nebivolol and will discuss rationale for this with her primary care physician. * We will hopefully be able to switch over to oral agents to control ventricular response tomorrow. * Continue DVT prophylaxis. Continue telemetry? Not applicable (in ICU.)
[2018-01-22] VITALS (8 sets, daily range): BP systolic 98–128; BP diastolic 60–88
[2018-01-22 04:51] LABS: ABSOLUTE BASOPHIL COUNT 0 /CUMM (0.0-0.2); ABSOLUTE EOSINOPHIL COUNT 0.1 /CUMM (0.0-0.7); ABSOLUTE GRANULOCYTE CT 5.5 /CUMM (1.4-6.5); ABSOLUTE LYMPH COUNT 1.6 /CUMM (1.2-3.4); ABSOLUTE MONOCYTE COUNT 1.2 /CUMM (0.10-0.60); BASOPHIL % 0.5 % (0.0-2.0); EOSINOPHIL % 1.7 % (0-5); GRANULOCYTE % 65.4 % (42.2-75.2); HEMATOCRIT 32.7 % (37-47); MEAN CORPUSCULAR VOLUME 105.9 FL (81.0-99.0); MEAN PLATELET VOLUME 9.3 FL (7.4-10.4); PLATELET COUNT 103 /CUMM (130-400); RBC DISTRIBUTION WIDTH 13.7 % (11.5-14.5); RED BLOOD CELL CT 3.09 /CUMM (4.20-5.40); WHITE BLOOD CELL COUNT 8.4 /CUMM (4.8-10.8)
--- NOTE | 2018-01-22 08:54 | PN- Housestaff ---
Subjective Follow-up For: Atrial Fibrillation Alcohol Withdrawl Transaminitis Tele-Events Since Last Visit: Atrial Fibrillation No overnight events Subjective: PAtient remains aysmptomatic from cardiac standpoint. Cough has worsened since yesterday but is not as bad as before. Review of Systems Constitutional: Reports: no symptoms. EENTM: Reports: no symptoms. Cardiovascular: Reports: no symptoms. Respiratory: Reports: cough. Gastrointestinal: Reports: no symptoms. Genitourinary: Reports: no symptoms. Musculoskeletal: Reports: no symptoms. Skin: Reports: no symptoms. Neurological/Psychological: Reports: no symptoms. Hematologic/Endocrine: Reports: no symptoms. Immunologic/Allergic: Reports: no symptoms. Objective Last 24 Hrs of Vital Signs/I&O Vital Signs Date Time Temp Pulse Resp B/P B/P Pulse O2 O2 Flow FiO2 Mean Ox Delivery Rate 01/22 1200 97.9 100 20 105/60 97 Room Air 01/22 1003 122 115/61 01/22 0800 97.9 114 20 110/70 97 Part ReBreather 01/22 0600 98.1 98 18 112/66 01/22 0428 126 103/71 01/22 0400 98.1 102 22 100/70 01/22 0400 98.1 102 22 108/70 95 Room Air Room Air 01/22 0200 108 22 98/72 01/22 0000 98.4 114 24 110/70 01/22 0000 98.4 114 24 110/70 93 Room Air Room Air 01/21 2200 98.6 116 24 91/62 01/21 2118 124 126/61 01/21 2024 117 109/67 01/22 2024 121 109/67 01/22 2000 98.6 124 24 109/67 01/22 2000 98.6 124 24 96/60 96 Room Air Room Air 01/21 1600 99.5 130 20 126/70 98 Room Air 01/21 1515 130 102/60 Intake & Output 01/22 1600 01/22 0800 01/22 0000 Intake Total 320 620 Output Total 550 850 Balance -230 -230 Intake, IV 120 120 Intake, Oral 200 500 Number 1 0 Bowel Movements Output, Urine 550 850 Patient 280 lb Weight Weight Bed scale Measurement Method Physical Exam General Appearance: Alert, Oriented X3, Cooperative Skin: No Rashes, No Breakdown Cardiovascular: Normal S1, Normal S2, Irregular Lungs: Clear to Auscultation, Normal Air Movement Abdomen: Normal Bowel Sounds, Soft, No Tenderness Extremities: No Clubbing, No Cyanosis, No Edema, Normal Pulses Current Medications: Current Medications Sig/Antwon Start time Last Medication Dose Route Stop Time Status Admin Acetaminophen 650 MG Q6P PRN 01/19 1500 AC 01/19 PO 2241 Apixaban 5 MG BID 01/20 1344 AC 01/22 PO 1002 Aripiprazole 2 MG DAILY 01/20 0900 AC 01/22 PO 1002 Benzocaine/Menthol 1 LLOYD Q2P PRN 01/20 1345 AC PO Desvenlafaxine 100 MG DAILY 01/21 1630 AC 01/21 Succinate PO 202 Diclofenac Sodium 1 ITALO 4 TIMES/DAY PRN 01/22 1130 AC TOP Diltiazem HCl 30 MG Q6 01/22 1345 UNVr PO Famotidine 20 MG BID 01/19 2100 AC 01/22 PO 1002 Folic Acid 1 MG DAILY 01/20 0900 AC 01/22 PO 1002 Lorazepam 0.5 MG DAILY PRN 01/21 0930 AC 01/21 PO 01/28 0929 0930 Lorazepam 0 Q1P PRN 01/19 1600 AC IV Metoprolol Tartrate 50 MG BID 01/22 0900 AC 01/22 PO 1003 Metoprolol Tartrate 25 MG ONCE ONE 01/21 2045 DC 01/21 PO 01/21 Metoprolol Tartrate 25 MG BID 01/19 2100 DC 01/21 PO 2023 Multivitamins 1 TAB DAILY 01/20 0900 AC 01/22 PO 1002 Sodium Chloride 500 ML BOLUS ONE 01/21 2045 CAN IV 01/21 214 Thiamine HCl 100 MG DAILY 01/20 0900 AC 01/22 PO 1002 Verapamil HCl 50 MG Q6H 01/22 0400 AC Sodium Chloride 80 ML IV Verapamil HCl 50 MG Q6H 01/22 2000 DC 01/22 Sodium Chloride 80 ML IV 0428 Verapamil HCl 50 MG Q8H 01/21 0930 DC 01/21 Sodium Chloride 80 ML IV 01/22 2000 1515 Last 24 Hrs of Lab/[place] Results Last 24 Hrs of Labs/Mics: Laboratory Tests 01/22/18 0430: Anion Gap 9, Estimated GFR > 60, Glucose 84, Calcium 8.4, Phosphorus 2.9, Magnesium 2.2, Total Bilirubin 2.4 H, AST 53 H, ALT 63 H, Albumin 2.9 L, CBC w Diff NO MAN DIFF REQ, RBC 3.09 L, MCV 105.9 H, MCH 36.0 H, MCHC 34.0, RDW 13.7, MPV 9.3, Gran % 65.4, Lymphocytes % 18.6 L, Monocytes % 13.8 H, Eosinophils % 1.7, Basophils % 0.5, Absolute Granulocytes 5.5, Absolute Lymphocytes 1.6, Absolute Monocytes 1.2 H, Absolute Eosinophils 0.1, Absolute Basophils 0 Assessment/Plan Assessment: 62 YO obese F ex-smoker with PMH of HTN, GERD, depression, gastric bypass and SVT status post ablation came to ED with chief complaint of generalized weakness , decreased appetite, abdominal discomfort and cough for last couple of days. Paln; 1. Atrial fibrillation with rapid ventricle response: - Heart rate improving, will start the patient on Cardizem 30 mg every 6 hours and taper off verapamil drip. - Continue metoprolol 50 mg twice a day. - Continue Eliquis 5mg BID. - Echocardiogram shows borderline concentric left ventricular hypertrophy with mildly reduced global left ventricular systolic function with ejection fraction estimated at 40-45%. Alcohol withdrawal: - Patient has history of alcohol abuse - IV ativan per CIWA protocol, CIWA scores remain 0 since admission. - Continue Thiamine and Folic acid supplementation Transient transaminitis: - Probably due to alcoholic liver disease Thrombocytopenia: -Probably due to alcoholic liver disease -Continue monitoring platelet count, improving. -Avoid any medication that decreases platelet count of function. History of Hypertension: -Continue her home medications History of GERD and gastric bypass: -Continue omeprazole History of depression: -Continue home medications DVT prophylaxis: Mechanical and the subcutaneous heparin Code Status: Full code Problem List: 1. Rapid atrial fibrillation 2. Transaminitis 3. Alcohol withdrawal Pain Ratin Pain Location: NA Pain Goal: Remain pain free Pain Plan: NA Tomorrow's Labs & Rationales: CBC (thrombocytopenia) ICU Bundle (transaminitis,
--- NOTE | 2018-01-22 12:43 | PN- Att Addend ---
Attending Addendum Attending Brief Note Patient seen and examined. Plan of care discussed with the medical team and the patient. Available lab work and radiology test reports were reviewed. Patient remains tachycardic rate of 110 this morning. She denies any chest pain difficulty breathing nausea vomiting. She complains of for right upper quadrant abdominal pain which gets worse when she tries to lift her head up. Note that patient had cholecystectomy. Exam: General: Patient awake alert oriented without any distress CVS: S1 plus S2 without any murmur or gallops Chest: Few scattered crepitation without any wheeze. There is no respiratory distress. Abdomen: Soft with mild to moderate tenderness over the right upper quadrant area which gets worse on deep palpation and also lifting her head up. Patient also this worse when she takes a deep breath in. bowel sound present, no guarding or rebound [employer]: Awake alert oriented without any focal neuro deficit and follows commands appropriately Extremities: No edema; no clubbing or cyanosis noted Assessment * Rapid A. fib- gradually improving * Right upper quadrant pain- since patient had cholecystectomy already other differential could include muscle pain or pain due to fatty liver. Patient has no history of trauma and she does not report any nausea vomiting or diarrhea or fever or chills. * Mild to moderate transaminitis * Thrombocytopenia -etiology unclear, professional include suspected alcohol abuse or underlying bone marrow process versus drug toxicity * Status post gastric bypass surgery Plan * Suggest adding oral Cardizem if agreed by cardiology, plan to taper off verapamil once heart rate is controlled with oral Cardizem * Move to telemetry when bed available * Tylenol or Motrin when necessary for right upper quadrant pain; heat pad when necessary and local application of diclofenac cream rubbed 3 times a day * Recheck CBC tomorrow; LFT in am Current Medications Sig/Antwon Start time Last Medication Dose Route Stop Time Status Admin Acetaminophen 650 MG Q6P PRN 01/19 1500 AC 01/19 PO 2241 Apixaban 5 MG BID 01/20 1344 AC 01/22 PO 1002 Aripiprazole 2 MG DAILY 01/20 0900 AC 01/22 PO 1002 Benzocaine/Menthol 1 LLOYD Q2P PRN 01/20 1345 AC PO Desvenlafaxine 100 MG DAILY 01/21 1630 AC 01/21 Succinate PO 202 Diclofenac Sodium 1 ITALO 4 TIMES/DAY PRN 01/22 1130 AC TOP Famotidine 20 MG BID 01/19 2100 AC 01/22 PO 1002 Folic Acid 1 MG DAILY 01/20 09 AC 01/22 PO 1002 Lorazepam 0.5 MG DAILY PRN 01/21 0930 AC 01/21 PO 01/28 929 0930 Lorazepam 0 Q1P PRN 01/19 1600 AC IV Magnesium Sulfate 1 GM Q2H 01/21 09 DC 01/21 Dextrose/Water 100 ML IV 01/21 1259 1259 Metoprolol Tartrate 50 MG BID 01/22 09 AC 01/22 PO 1003 Metoprolol Tartrate 25 MG ONCE ONE 01/21 2045 DC 01/21 PO 01/21 Metoprolol Tartrate 25 MG BID 01/19 2100 DC 01/21 PO 2023 Multivitamins 1 TAB DAILY 01/20 09 AC 01/22 PO 1001 Sodium Chloride 500 ML BOLUS ONE 01/21 2045 CAN IV 01/21 214 Thiamine HCl 100 MG DAILY 01/20 09 AC 01/22 PO 1002 Verapamil HCl 50 MG Q6H 01/22 0400 AC Sodium Chloride 80 ML IV Verapamil HCl 50 MG Q6H 01/22 2000 DC 01/22 Sodium Chloride 80 ML IV 0428 Verapamil HCl 50 MG Q8H 01/21 930 DC 01/21 Sodium Chloride 80 ML IV 01/22 2000 1515 Verapamil HCl 25 MG Q8H 01/21 09 DC Sodium Chloride 40 ML IV 01/21 1309 Laboratory Tests 01/22/18 0430: Anion Gap 9, Estimated GFR > 60, Glucose 84, Calcium 8.4, Phosphorus 2.9, Magnesium 2.2, Total Bilirubin 2.4 H, AST 53 H, ALT 63 H, Albumin 2.9 L, CBC w Diff NO MAN DIFF REQ, RBC 3.09 L, MCV 105.9 H, MCH 36.0 H, MCHC 34.0, RDW 13.7, MPV 9.3, Gran % 65.4, Lymphocytes % 18.6 L, Monocytes % 13.8 H, Eosinophils % 1.7, Basophils % 0.5, Absolute Granulocytes 5.5, Absolute Lymphocytes 1.6, Absolute Monocytes 1.2 H, Absolute Eosinophils 0.1, Absolute Basophils 0 01/21/18 1200: APTT Cancelled 01/21/18 0424: Anion Gap 7, Estimated GFR > 60, Glucose 84, Calcium 8.5, Phosphorus 2.2 L, Magnesium 1.8, Total Bilirubin 2.5 H, AST 62 H, ALT 67 H, Albumin 2.7 L, CBC w Diff NO MAN DIFF REQ, RBC 2.99 L, MCV 104.8 H, MCH 35.6 H, MCHC 34.0, RDW 13.3, Gran % 75.3 H, Lymphocytes % 14.4 L, Monocytes % 9.2, Eosinophils % 0.8, Basophils % 0.3, Absolute Granulocytes 6.2, Absolute Lymphocytes 1.2, Absolute Monocytes 0.8 H, Absolute Eosinophils 0.1, Absolute Basophils 0 01/21/18 0015: APTT 66 H 01/20/18 1215: APTT 71 H 01/20/18 0505: Anion Gap 10, Estimated GFR > 60, BUN/Creatinine Ratio 11.1, Magnesium 2.1, APTT 56 H, CBC w Diff NO MAN DIFF REQ, RBC 3.00 L, MCV 105.1 H, MCH 35.2 H, MCHC 33.5, RDW 13.4, MPV 8.8, Gran % 64.4, Lymphocytes % 21.9, Monocytes % 11.5 H, Eosinophils % 1.7, Basophils % 0.5, Absolute Granulocytes 3.9, Absolute Lymphocytes 1.3, Absolute Monocytes 0.7 H, Absolute Eosinophils 0.1, Absolute Basophils 0 01/19/18 2252: Lactic Acid 1.3 01/19/18 2215: Troponin I < 0.01, APTT 107 *H 01/19/18 1617: Troponin I < 0.01 Microbiology 01/20 0030 UPPER RESP: Surveillance Culture - COMP 01/19 2357 GI: Surveillance Culture - CAN Cancelled: NO SWAB COLLECTED 01/19 2302 BLOOD: Blood Culture - RES 01/20 2252 BLOOD: Blood Culture - RES Vital Signs Date Time Temp Pulse Resp B/P B/P Pulse O2 O2 Flow FiO2 Mean Ox Delivery Rate 01/22 1200 97.9 100 20 105/60 97 Room Air 01/22 1003 122 115/61 01/22 0800 97.9 114 20 110/70 97 Part ReBreather 01/22 0600 98.1 98 18 112/66 04 0428 126 103/71 01/22 0400 98.1 102 22 100/70 01/22 0400 98.1 102 22 108/70 95 Room Air Room Air 01/22 0200 108 22 98/72 01/22 0000 98.4 114 24 110/70 01/22 0000 98.4 114 24 110/70 93 Room Air Room Air 01/21 2200 98.6 116 24 91/62 01/218 124 126/61 01/22 2024 117 109/67 01/22 2024 121 109/67 01/22 2000 98.6 124 24 109/67 01/22 2000 98.6 124 24 96/60 96 Room Air Room Air 01/21 1600 99.5 130 20 126/70 98 Room Air 01/21 1515 130 102/60 Intake & Output 01/22 1600 01/22 0800 01/22 0000 Intake Total 320 620 Output Total 550 850 Balance -230 -230 Intake, IV 120 120 Intake, Oral 200 500 Number 1 0 Bowel Movements Output, Urine 550 850 Patient 280 lb Weight Weight Bed scale Measurement Method
--- NOTE | 2018-01-22 19:42 | PN- Cardiology ---
Subjective Subjective: No complaints. The ventricular response to her age for ablation is coming under better control and tapering down the IV verapamil while titrating up her by mouth medications.. Objective Vital Signs and I&Os Vital Signs Date Time Temp Pulse Resp B/P B/P Pulse O2 O2 Flow FiO2 Mean Ox Delivery Rate 01/22 1600 97.2 108 24 128/88 99 Room Air 01/22 1409 112 99/77 01/22 1200 97.9 100 20 105/60 97 Room Air 01/22 1003 122 115/61 01/22 0800 97.9 114 20 110/70 97 Part ReBreather 01/22 0600 98.1 98 18 112/66 01/22 0428 126 103/71 01/22 0400 98.1 102 22 100/70 01/22 0400 98.1 102 22 108/70 95 Room Air Room Air 01/22 0200 108 22 98/72 01/22 0000 98.4 114 24 110/70 01/22 0000 98.4 114 24 110/70 93 Room Air Room Air 01/21 2200 98.6 116 24 91/62 01/21 2118 124 126/61 01/22 2024 117 109/67 01/22 2024 121 109/67 01/22 2000 98.6 124 24 109/67 01/22 2000 98.6 124 24 96/60 96 Room Air Room Air Intake & Output 01/22 1600 01/22 0800 01/22 0000 01/21 1600 01/21 0800 01/21 0000 Intake Total 113 320 620 731 609 596 Output Total 550 850 600 500 Balance 113 -230 -230 731 9 96 Intake, IV 113 120 120 31 249 226 Intake, Oral 200 500 700 360 370 Number 1 1 0 1 1 0 Bowel Movements Output, Urine 550 850 600 500 Patient 280 lb 279 lb Weight Weight Bed scale Bed scale Measurement Method Physical Exam: Neck: No JVD, no bruits. Lungs: Clear to auscultation bilaterally. Heart: S1, S2 (irregularly, irregular). Abdomen: Soft, nontender, positive bowel sounds. Extremities: No edema. Current Medications: Current Medications Sig/Antwon Start time Last Medication Dose Route Stop Time Status Admin Acetaminophen 650 MG Q6P PRN 01/19 1500 AC 01/19 PO 2241 Apixaban 5 MG BID 01/20 1344 AC 01/22 PO 1002 Aripiprazole 2 MG DAILY 01/20 0900 AC 01/22 PO 1002 Benzocaine/Menthol 1 LLOYD Q2P PRN 01/20 1345 AC PO Desvenlafaxine 100 MG DAILY 01/21 1630 AC 01/22 Succinate PO 1408 Diclofenac Sodium 1 ITALO 4 TIMES/DAY PRN 01/22 1130 AC 01/22 TOP 1412 Diltiazem HCl 30 MG Q6H 01/22 1400 AC PO Diltiazem HCl 30 MG Q6 01/22 1345 DC 01/22 PO 1409 Famotidine 20 MG BID 01/19 2100 AC 01/22 PO 1002 Folic Acid 1 MG DAILY 01/20 0900 AC 01/22 PO 1002 Lorazepam 0.5 MG DAILY PRN 01/21 0930 AC 01/21 PO 01/28 0929 0930 Lorazepam 0 Q1P PRN 01/19 1600 AC IV Metoprolol Tartrate 50 MG BID 01/22 0900 AC 01/22 PO 1003 Metoprolol Tartrate 25 MG ONCE ONE 01/21 2045 DC 01/21 PO 01/21 Metoprolol Tartrate 25 MG BID 01/19 2100 DC 01/21 PO 2023 Multivitamins 1 TAB DAILY 01/20 0900 AC 01/22 PO 1002 Sodium Chloride 500 ML BOLUS ONE 01/21 2045 CAN IV 01/22 2144 Thiamine HCl 100 MG DAILY 01/20 0900 AC 01/22 PO 1002 Verapamil HCl 50 MG Q6H 01/22 0400 AC 01/22 Sodium Chloride 80 ML IV 1200 Verapamil HCl 50 MG Q6H 01/22 2000 DC 01/22 Sodium Chloride 80 ML IV 0428 Verapamil HCl 50 MG Q8H 01/21 0930 DC 01/21 Sodium Chloride 80 ML IV 01/22 2000 1515 Results Last 48 Hrs of Labs/Mics: Laboratory Tests 01/22/18 0430: Anion Gap 9, Estimated GFR > 60, Glucose 84, Calcium 8.4, Phosphorus 2.9, Magnesium 2.2, Total Bilirubin 2.4 H, AST 53 H, ALT 63 H, Albumin 2.9 L, CBC w Diff NO MAN DIFF REQ, RBC 3.09 L, MCV 105.9 H, MCH 36.0 H, MCHC 34.0, RDW 13.7, MPV 9.3, Gran % 65.4, Lymphocytes % 18.6 L, Monocytes % 13.8 H, Eosinophils % 1.7, Basophils % 0.5, Absolute Granulocytes 5.5, Absolute Lymphocytes 1.6, Absolute Monocytes 1.2 H, Absolute Eosinophils 0.1, Absolute Basophils 0 01/21/18 1200: APTT Cancelled 01/21/18 0424: Anion Gap 7, Estimated GFR > 60, Glucose 84, Calcium 8.5, Phosphorus 2.2 L, Magnesium 1.8, Total Bilirubin 2.5 H, AST 62 H, ALT 67 H, Albumin 2.7 L, CBC w Diff NO MAN DIFF REQ, RBC 2.99 L, MCV 104.8 H, MCH 35.6 H, MCHC 34.0, RDW 13.3, Gran % 75.3 H, Lymphocytes % 14.4 L, Monocytes % 9.2, Eosinophils % 0.8, Basophils % 0.3, Absolute Granulocytes 6.2, Absolute Lymphocytes 1.2, Absolute Monocytes 0.8 H, Absolute Eosinophils 0.1, Absolute Basophils 0 01/21/18 0015: APTT 66 H Assessment/Plan Assessment/Plan 62-y-o-w-f w/ hx of former tobacco use, obesity s/p bariatric surgery (gastric bypass), HTN, & SVT s/p catheter ablation in March 2016 at [facility] (Eliot Rodriguez M.D.) who presented w/ c/o decreased appetite, weakness, and paroxysms of coughing, dry heaves, abdominal pain 2/2 her inability to mobilize phlegm that lodges in her throat that has been occurring since December 2017 & sought medical attention after experiencing 3 such episodes on the morning of 01/18/2018 when she was discovered to be in AF w/ a RVR that has responded better to IV verapamil, but is not yet adequately controlled. Increased her metoprolol to 50 mg twice daily and we will add by mouth diltiazem 30 mg every 6 hours while titrating down her IV verapamil. Transfer to telemetry when IV verapamil off and continue to increase by mouth diltiazem to achieve adequate ventricular response to her atrial fibrillation. Continue Eliquis for anticoagulation. Continue telemetry? Not applicable (In ICU.)
[2018-01-23 06:36] VITALS: BP 120/80
[2018-01-23 08:26] LABS: ABSOLUTE BASOPHIL COUNT 0 /CUMM (0.0-0.2); ABSOLUTE EOSINOPHIL COUNT 0.1 /CUMM (0.0-0.7); ABSOLUTE GRANULOCYTE CT 5.1 /CUMM (1.4-6.5); BASOPHIL % 0.6 % (0.0-2.0); EOSINOPHIL % 1.5 % (0-5); MEAN CORPUSCULAR HGB 35.4 PG (27.0-31.0); MEAN CORPUSCULAR HGB CONC 33.8 G/DL (33.0-37.0); MEAN CORPUSCULAR VOLUME 104.7 FL (81.0-99.0); RBC DISTRIBUTION WIDTH 13.4 % (11.5-14.5); RED BLOOD CELL CT 2.96 /CUMM (4.20-5.40)
--- NOTE | 2018-01-23 08:36 | PN- Housestaff ---
Subjective Follow-up For: Atrial Fibrillation Alcohol Withdrawl Transaminitis Tele-Events Since Last Visit: Philippe mejia HR 100/130s Subjective: Patient was seen and examined at bedside. She is resting comfortably. She had no acute events. She reports that this morning she had a bad fit of coughing, the first since being admitted. She has not had a persistent cough, and is concerned about this episode. She denies any chest pain, shortness of breath, nausea, vomiting, fever, chills, palpitations. Review of Systems Constitutional: Reports: no symptoms. EENTM: Reports: no symptoms. Cardiovascular: Denies: chest pain, palpitations. Respiratory: Reports: cough. Denies: short of breath, sputum production. Gastrointestinal: Reports: no symptoms. Genitourinary: Reports: no symptoms. Musculoskeletal: Reports: no symptoms. Objective Last 24 Hrs of Vital Signs/I&O Vital Signs Date Time Temp Pulse Resp B/P B/P Pulse O2 O2 Flow FiO2 Mean Ox Delivery Rate 01/23 0800 120/80 01/23 0759 120/80 01/23 0636 98.4 105 20 120/80 96 Room Air 01/23 0400 122 01/23 0200 108 01/23 0135 107 108/78 01/22 2341 98.9 121 22 110/78 01/22 2341 98.9 121 22 110/78 96 Room Air 01/22 2120 120 20 114/63 01/22 2120 120 20 114/63 01/22 1600 97.2 108 24 128/88 99 Room Air 01/22 1409 112 99/77 01/22 1200 97.9 100 20 105/60 97 Room Air 01/22 1003 122 115/61 Intake & Output 01/23 1600 01/23 0800 01/23 0000 Intake Total 120 276 Output Total 200 Balance 120 76 Intake, IV 36 Intake, Oral 120 240 Number 0 Bowel Movements Output, Urine 200 Physical Exam General Appearance: Alert, Oriented X3, Cooperative, No Acute Distress Cardiovascular: Normal S1, Normal S2, irregularly irregular rhythm, tachycardic HR 100s Lungs: Clear to Auscultation, Normal Air Movement Abdomen: Normal Bowel Sounds, Soft, No Tenderness Neurological: Normal Speech, Normal Tone, Sensation Intact Extremities: No Clubbing, No Cyanosis, No Edema Current Medications: Current Medications Sig/Antwon Start time Last Medication Dose Route Stop Time Status Admin Acetaminophen 650 MG Q6P PRN 01/19 1500 AC 01/19 PO 2241 Apixaban 5 MG BID 01/20 1344 AC 01/23 PO 0800 Aripiprazole 2 MG DAILY 01/20 0900 AC 01/23 PO 0800 Benzocaine/Menthol 1 LLOYD Q2P PRN 01/20 1345 AC PO Desvenlafaxine 100 MG DAILY 01/21 1630 AC 01/23 Succinate PO 0759 Diclofenac Sodium 1 ITALO 4 TIMES/DAY PRN 01/22 1130 AC 01/22 TOP 1412 Diltiazem HCl 30 MG Q6H 01/22 1400 AC 01/23 PO 0759 Diltiazem HCl 30 MG Q6 01/22 1345 DC 01/22 PO 1409 Famotidine 20 MG BID 01/19 2100 AC 01/23 PO 0800 Folic Acid 1 MG DAILY 01/20 0900 AC 01/23 PO 0800 Lorazepam 0.5 MG DAILY PRN 01/21 0930 AC 01/21 PO 01/28 0929 0930 Lorazepam 0 Q1P PRN 01/19 1600 AC IV Metoprolol Tartrate 50 MG BID 01/22 0900 AC 01/23 PO 0800 Multivitamins 1 TAB DAILY 01/20 0900 AC 01/23 PO 0800 Thiamine HCl 100 MG DAILY 01/20 0900 AC 01/23 PO 0759 Verapamil HCl 50 MG Q6H 01/22 0400 DC 01/22 Sodium Chloride 80 ML IV 1200 Last 24 Hrs of Lab/[place] Results Last 24 Hrs of Labs/Mics: Laboratory Tests 01/23/18 0605: Anion Gap 8, Estimated GFR > 60, Glucose 65, Calcium 8.3 L, Phosphorus 3.3, Magnesium 1.9, Total Bilirubin 2.1 H, AST 45 H, ALT 56 H, Albumin 2.6 L, CBC w Diff NO MAN DIFF REQ, RBC 2.96 L, MCV 104.7 H, MCH 35.4 H, MCHC 33.8, RDW 13.4, MPV 10.0, Gran % 70.0, Lymphocytes % 14.3 L, Monocytes % 13.6 H, Eosinophils % 1.5, Basophils % 0.6, Absolute Granulocytes 5.1, Absolute Lymphocytes 1.0 L, Absolute Monocytes 1.0 H, Absolute Eosinophils 0.1, Absolute Basophils 0 Assessment/Plan Assessment: 62 YO obese F ex-smoker with PMH of HTN, GERD, depression, gastric bypass and SVT status post ablation came to ED with chief complaint of generalized weakness , decreased appetite, abdominal discomfort and cough for last couple of days. Paln; 1. Atrial fibrillation with rapid ventricle response: - Heart rate remains elevated, increase Cardizem to 60 mg by mouth every 6 hours - Continue metoprolol 50 mg twice a day. - Continue Eliquis 5mg BID. - Echocardiogram shows borderline concentric left ventricular hypertrophy with mildly reduced global left ventricular systolic function with ejection fraction estimated at 40-45%. -Due to difficult to control heart rate, episode of shortness of breath and mildly elevated d-dimer, Dr. Velarde recommended CTA to rule out PE. After discussion with the attending physician Jitendra Wallace MD, given low well's score of 1 and lack of hypoxia on room air we will monitor for symptoms suggestive of PE and consider CTA at that time. Alcohol withdrawal: - Patient has history of alcohol abuse - IV ativan per CIWA protocol, CIWA scores remain 0 since admission. - Continue Thiamine and Folic acid supplementation Transient transaminitis: - Probably due to alcoholic liver disease Thrombocytopenia: -Probably due to alcoholic liver disease -Continue monitoring platelet count, improving. -Avoid any medication that decreases platelet count of function. - follow-up anemia work-up History of Hypertension: -Continue her home medications History of GERD and gastric bypass: -Continue omeprazole History of depression: -Continue home medications Mild hyponatremia: -continue to monitor BEP Diet: heart healthy diet DVT prophylaxis: Mechanical and the subcutaneous heparin Code Status: Full code Problem List: 1. Rapid atrial fibrillation 2. Transaminitis 3. Alcohol withdrawal Pain Ratin Pain Location: none Pain Goal: Remain pain free Pain Plan: pain pathway Tomorrow's Labs & Rationales: cbc, bep
[2018-01-23] MEDS ORDERED: ELIQUIS5 M1 PO (10:08)
[2018-01-23] MEDS ORDERED: METOPROLOL TART50 M1 PO (10:08)
--- NOTE | 2018-01-23 10:11 | PN- Att Addend ---
Attending Addendum Attending Brief Note Patient seen and examined. Plan of care discussed with the medical team and the patient. Available lab work and radiology test reports were reviewed. Patient was moved out of ICU. She is currently off verapamil drip. Telemetry shows heart rate Fluctuating close to 122. She denies any chest pain difficulty breathing nausea vomiting. Exam: General: Patient awake alert oriented without any distress CVS: S1 plus S2 without any murmur or gallops Chest: Few scattered crepitation without any wheeze. There is no respiratory distress. Abdomen: Soft with mild to moderate tenderness over the right upper quadrant area which gets worse on deep palpation and also lifting her head up. Patient also this worse when she takes a deep breath in. 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 fib- gradually improving but rate is still higher than expected * Right upper quadrant pain- since patient had cholecystectomy already other differential could include muscle pain or pain due to fatty liver. Patient has no history of trauma and she does not report any nausea vomiting or diarrhea or fever or chills. * Mild to moderate transaminitis * Thrombocytopenia -etiology unclear, deferential include suspected alcohol abuse or underlying bone marrow process versus drug toxicity * Status post gastric bypass surgery Plan * Suggest increasing oral Cardizem dose to 60 every 6. Continue to monitor on telemetry; once total dose of Cardizem is determined we will switch to long- acting Cardizem. * Continue Tylenol or Motrin when necessary for right upper quadrant pain; heat pad when necessary and local application of diclofenac cream rubbed 3 times a day Current Medications Sig/Antwon Start time Last Medication Dose Route Stop Time Status Admin Acetaminophen 650 MG Q6P PRN 01/19 1500 AC 01/19 PO 2241 Apixaban 5 MG BID 01/20 1344 AC 01/23 PO 0800 Aripiprazole 2 MG DAILY 01/20 0900 AC 01/23 PO 0800 Benzocaine/Menthol 1 LLOYD Q2P PRN 01/20 1345 AC PO Desvenlafaxine 100 MG DAILY 01/21 1630 AC 01/23 Succinate PO 0759 Diclofenac Sodium 1 ITALO 4 TIMES/DAY PRN 01/22 1130 AC 01/22 TOP 1412 Diltiazem HCl 60 MG Q6H 01/23 1400 AC PO Diltiazem HCl 30 MG ONCE ONE 01/23 0915 DC 01/23 PO 01/23 0916 0923 Diltiazem HCl 30 MG Q6H 01/22 1400 DC 01/23 PO 0759 Diltiazem HCl 30 MG Q6 01/22 1345 DC 01/22 PO 1409 Famotidine 20 MG BID 01/19 2100 AC 01/23 PO 0800 Folic Acid 1 MG DAILY 01/20 0900 AC 01/23 PO 0800 Lorazepam 0.5 MG DAILY PRN 01/21 09 AC 01/21 PO 01/28 0929 0930 Lorazepam 0 Q1P PRN 01/19 1600 AC IV Metoprolol Tartrate 50 MG BID 01/22 0900 AC 01/23 PO 0800 Multivitamins 1 TAB DAILY 01/20 0900 AC 01/23 PO 0800 Thiamine HCl 100 MG DAILY 01/20 0900 AC 01/23 PO 0759 Verapamil HCl 50 MG Q6H 01/22 0400 DC 01/22 Sodium Chloride 80 ML IV 1200 Laboratory Tests 01/23/18 0605: Anion Gap 8, Estimated GFR > 60, Glucose 65, Calcium 8.3 L, Phosphorus 3.3, Magnesium 1.9, Total Bilirubin 2.1 H, AST 45 H, ALT 56 H, Albumin 2.6 L, CBC w Diff Pending, WBC Pending, RBC Pending, Hgb Pending, Hct Pending, MCV Pending, MCH Pending, MCHC Pending, RDW Pending, Plt Count Pending, MPV Pending, Gran % Pending, Lymphocytes % Pending, Monocytes % Pending, Eosinophils % Pending, Basophils % Pending, Absolute Granulocytes Pending, Absolute Lymphocytes Pending , Absolute Monocytes Pending, Absolute Eosinophils Pending, Absolute Basophils Pending 01/22/18 0430: Anion Gap 9, Estimated GFR > 60, Glucose 84, Calcium 8.4, Phosphorus 2.9, Magnesium 2.2, Total Bilirubin 2.4 H, AST 53 H, ALT 63 H, Albumin 2.9 L, CBC w Diff NO MAN DIFF REQ, RBC 3.09 L, MCV 105.9 H, MCH 36.0 H, MCHC 34.0, RDW 13.7, MPV 9.3, Gran % 65.4, Lymphocytes % 18.6 L, Monocytes % 13.8 H, Eosinophils % 1.7, Basophils % 0.5, Absolute Granulocytes 5.5, Absolute Lymphocytes 1.6, Absolute Monocytes 1.2 H, Absolute Eosinophils 0.1, Absolute Basophils 0 01/21/18 1200: APTT Cancelled 01/21/18 0424: Anion Gap 7, Estimated GFR > 60, Glucose 84, Calcium 8.5, Phosphorus 2.2 L, Magnesium 1.8, Total Bilirubin 2.5 H, AST 62 H, ALT 67 H, Albumin 2.7 L, CBC w Diff NO MAN DIFF REQ, RBC 2.99 L, MCV 104.8 H, MCH 35.6 H, MCHC 34.0, RDW 13.3, Gran % 75.3 H, Lymphocytes % 14.4 L, Monocytes % 9.2, Eosinophils % 0.8, Basophils % 0.3, Absolute Granulocytes 6.2, Absolute Lymphocytes 1.2, Absolute Monocytes 0.8 H, Absolute Eosinophils 0.1, Absolute Basophils 0 01/21/18 0015: APTT 66 H 01/20/18 1215: APTT 71 H Vital Signs Date Time Temp Pulse Resp B/P B/P Pulse O2 O2 Flow FiO2 Mean Ox Delivery Rate 01/23 0923 118/66 01/23 0800 120/80 01/23 0759 120/80 01/23 0636 98.4 105 20 120/80 96 Room Air 01/23 0400 122 01/23 0200 108 01/23 0135 107 108/78 01/22 2341 98.9 121 22 110/78 01/22 2341 98.9 121 22 110/78 96 Room Air 01/22 2120 120 20 114/63 01/22 2120 120 20 114/63 01/22 1600 97.2 108 24 128/88 99 Room Air 01/22 1409 112 99/77 01/22 1200 97.9 100 20 105/60 97 Room Air Intake & Output 01/23 1600 01/23 0800 01/23 0000 Intake Total 120 276 Output Total 200 Balance 120 76 Intake, IV 36 Intake, Oral 120 240 Number 0 Bowel Movements Output, Urine 200
[2018-01-23 10:12] LABS: WHITE BLOOD CELL COUNT 7.3 /CUMM (4.8-10.8)
--- NOTE | 2018-01-23 14:32 | PN- Cardiology ---
Subjective Subjective: * positive and intermittent shortness of breath * atrial fibrillation with increased heart rate Objective Vital Signs and I&Os Vital Signs Date Time Temp Pulse Resp B/P B/P Pulse O2 O2 Flow FiO2 Mean Ox Delivery Rate 01/23 0923 118/66 01/23 0800 120/80 01/23 0759 120/80 01/23 0636 98.4 105 20 120/80 96 Room Air 01/23 0400 122 01/23 0200 108 01/23 0135 107 108/78 01/22 2341 98.9 121 22 110/78 01/22 2341 98.9 121 22 110/78 96 Room Air 01/22 2120 120 20 114/63 01/22 2120 120 20 114/63 01/22 1600 97.2 108 24 128/88 99 Room Air Intake & Output 01/23 1600 01/23 0800 01/23 0000 01/22 1600 01/22 0800 01/22 0000 Intake Total 120 276 113 320 620 Output Total 200 550 850 Balance 120 76 113 -230 -230 Intake, IV 36 113 120 120 Intake, Oral 120 240 200 500 Number 0 1 1 0 Bowel Movements Output, Urine 200 550 850 Patient 280 lb 280 lb Weight Weight Bed scale Measurement Method Physical Exam: General: WD/WN female in NAD; alert and oriented x 3 Neck: no JVD Heart: irregularly irregular and tachycardic Lungs: clear bilaterally Exztremities: no edema Assessment/Plan Assessment/Plan * This obese patient has atrial fibrillation with rapid rate and evidence of right sided enlargement with increased D-dimer. She has also had shortness of breath although not at the moment while lying still. Obtain a CT angiogram to assess for a pulmonary embolism. Continue anticoagulation with Eliquis. * Change Metoprolol to 100mg BID. Increase Cardizem to 180mg BID. * Pursue an anemia workup Continue telemetry? Yes
[2018-01-23 14:39] VITALS: BP 118/80
--- NOTE | 2018-01-23 14:53 | Patient Discharge Instructions ---
Discharge Instructions General Discharge Information You were seen/treated for: Atrial Fibrillaion with RVR alcohol Withdrawl Thrombocytopenia Watch for these problems: Please return to the ER in his of any chest pain, shortness of breath, palpitations or lightheadedness/dizziness. Special Instructions: Please follow-up with your PCP within a week after discharge. 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 Linn within a week after discharge. Note digoxin level of 1.4 ng/ml on 01/26. Continue on digoxin 0.125 mg daily. Follow-up digoxin level on an outpatient basis in one week (along with liver function tests). Following this, you will get digoxin levels every few months. Please measure BP every morning. If BP is less than 90/60, DO NOT take metoprolol. Please see railroad car letterer for commencement of anti-cholesterol medication after you have liver function tests done on 02/03/18. Diet Continue normal diet: Yes Recommended Diet: Heart Healthy Activity Full Activity/No Limits: Yes Activity Self Limited: Yes (as tolerated) Acute Coronary Syndrome Inclusion Criteria At DC or during hospital stay patient has or had the following: ACS DIAGNOSIS No Discharge Core Measures Meds if any: Prescribed or Continued at Discharge Meds if any: NOT Prescribed or Continued at Discharge Congestive Heart Failure Inclusion Criteria At DC or during hospital stay patient has or had the following: CHF DIAGNOSIS No Discharge Core Measures Meds if any: Prescribed or Continued at Discharge Meds if any: NOT Prescribed or Continued at Discharge Cerebrovascular accident Inclusion Criteria At DC or during hospital stay patient has or had the following: CVA/TIA Diagnosis No Discharge Core Measures Meds if any: Prescribed or Continued at Discharge Meds if any: NOT Prescribed or Continued at Discharge Venous thromboembolism Inclusion Criteria VTE Diagnosis No VTE Type NONE VTE Confirmed by (Test) NONE Discharge Core Measures - Per Current guidelines, there needs to be overlap - treatment for the first 5 days of Warfarin therapy. - If discharged on Warfarin prior to 5 days of - overlap therapy, the patient will need to be - assessed for post discharge needs including - *Post discharge parental anticoagulation - *Warfarin and/or parental anticoagulation education - *Follow up date to check INR post discharge At least 5 days overlap therapy as Inpatient No Meds if any: Prescribed or Continued at Discharge Note: Overlap Therapy is Warfarin and Anticoagulant Meds if any: NOT Prescribed or Continued at Discharge
[2018-01-23 22:47] VITALS: BP 103/90
[2018-01-24 06:47] VITALS: BP 100/80
[2018-01-24 08:19] LABS: ABSOLUTE BASOPHIL COUNT 0.1 /CUMM (0.0-0.2); ABSOLUTE EOSINOPHIL COUNT 0.1 /CUMM (0.0-0.7); ABSOLUTE LYMPH COUNT 0.9 /CUMM (1.2-3.4); ABSOLUTE MONOCYTE COUNT 1.1 /CUMM (0.10-0.60); BASOPHIL % 0.8 % (0.0-2.0); EOSINOPHIL % 2.2 % (0-5); GRANULOCYTE % 64.7 % (42.2-75.2); HEMATOCRIT 31.1 % (37-47); MEAN CORPUSCULAR HGB 35.5 PG (27.0-31.0); MEAN CORPUSCULAR HGB CONC 33.9 G/DL (33.0-37.0); MEAN CORPUSCULAR VOLUME 104.7 FL (81.0-99.0); MEAN PLATELET VOLUME 9.8 FL (7.4-10.4); RBC DISTRIBUTION WIDTH 13.6 % (11.5-14.5); RED BLOOD CELL CT 2.97 /CUMM (4.20-5.40)
[2018-01-24 10:20] LABS: WHITE BLOOD CELL COUNT 6.1 /CUMM (4.8-10.8)
--- NOTE | 2018-01-24 11:41 | PN- Att Addend ---
Attending Addendum Attending Brief Note Patient seen and examined. Plan of care discussed with the medical team and the patient. Available lab work and radiology test reports were reviewed. Telemetry shows heart rate Fluctuating close to 110-120. She denies any chest pain difficulty breathing nausea vomiting. Exam: General: Patient awake alert oriented without any distress CVS: S1 plus S2 without any murmur or gallops Chest: Few scattered crepitation without any wheeze. There is no respiratory distress. Abdomen: Soft with mild to moderate tenderness over the right upper quadrant area which gets worse on deep palpation and also lifting her head up. Patient also this worse when she takes a deep breath in. 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 fib- gradually improving but rate is still higher than expected * Right upper quadrant pain- since patient had cholecystectomy already other differential could include muscle pain or pain due to fatty liver. Patient has no history of trauma and she does not report any nausea vomiting or diarrhea or fever or chills. * Mild to moderate transaminitis possibly due to fatty liver * Thrombocytopenia -etiology unclear, deferential include suspected alcohol abuse or underlying bone marrow process versus drug toxicity * Status post gastric bypass surgery Plan * Continue diltiazem and metoprolol. Wait for further cardiology input. If the dates remains higher patient may need further escalation the dose of diltiazem * Continue Tylenol or Motrin when necessary for right upper quadrant pain; heat pad when necessary and local application of diclofenac cream rubbed 3 times a day * Out of bed and ambulate * I would not pursue CTA to rule out PE. Patient currently does not have any compatible symptoms or underlying risk factors. She is saturating well on room air. Her Wells score is 1.5 with overall risk of for PE at 1.3%. Current Medications Sig/Antwon Start time Last Medication Dose Route Stop Time Status Admin Acetaminophen 650 MG Q6P PRN 01/19 1500 AC 01/19 PO 2241 Apixaban 5 MG BID 01/20 1344 AC 01/24 PO 09 Aripiprazole 2 MG DAILY 01/20 0900 AC 01/24 PO 0925 Benzocaine/Menthol 1 LLOYD Q2P PRN 01/20 1345 AC PO Desvenlafaxine 100 MG DAILY 01/21 1630 AC 01/24 Succinate PO 0928 Diclofenac Sodium 1 ITALO 4 TIMES/DAY PRN 01/22 1130 AC 01/22 TOP 1412 Diltiazem HCl 180 MG BID 01/23 2100 AC 01/24 PO 0925 Diltiazem HCl 60 MG Q6H 01/23 1400 DC 01/23 PO 1456 Famotidine 20 MG BID 01/19 2100 AC 01/24 PO 0927 Folic Acid 1 MG DAILY 01/20 0900 AC 01/24 PO 0926 Lorazepam 0.5 MG DAILY PRN 01/21 0930 AC 01/21 PO 01/28 0929 0930 Lorazepam 0 Q1P PRN 01/19 1600 AC IV Metoprolol Tartrate 100 MG BID 01/23 2100 AC 01/24 PO 09 Metoprolol Tartrate 50 MG BID 01/22 0900 DC 01/23 PO 0800 Multivitamins 1 TAB DAILY 01/20 0900 AC 01/24 PO 0928 Thiamine HCl 100 MG DAILY 01/20 09 AC 01/24 PO 0929 Laboratory Tests 01/24/18 0632: Anion Gap 9, Estimated GFR > 60, BUN/Creatinine Ratio 12.5, CBC w Diff NO MAN DIFF REQ, RBC 2.97 L, MCV 104.7 H, MCH 35.5 H, MCHC 33.9, RDW 13.6, MPV 9.8, Gran % 64.7, Lymphocytes % 13.9 L, Monocytes % 18.4 H, Eosinophils % 2.2, Basophils % 0.8, Absolute Granulocytes 4.0, Absolute Lymphocytes 0.9 L, Absolute Monocytes 1.1 H, Absolute Eosinophils 0.1, Absolute Basophils 0.1 01/23/18 0607: Haptoglobin Pending 01/23/18 0605: Anion Gap 8, Estimated GFR > 60, Glucose 65, Calcium 8.3 L, Phosphorus 3.3, Magnesium 1.9, Iron 43, TIBC 240 L, Ferritin 169.0, Total Bilirubin 2.1 H, AST 45 H, ALT 56 H, Albumin 2.6 L, Vitamin B12 816, Folate 15.2, CBC w Diff NO MAN DIFF REQ, RBC 2.96 L, MCV 104.7 H, MCH 35.4 H, MCHC 33.8, RDW 13.4, MPV 10.0, Gran % 70.0, Lymphocytes % 14.3 L, Monocytes % 13.6 H, Eosinophils % 1.5 , Basophils % 0.6, Absolute Granulocytes 5.1, Absolute Lymphocytes 1.0 L, Absolute Monocytes 1.0 H, Absolute Eosinophils 0.1, Absolute Basophils 0, Retic Count 2.62 H 01/22/18 0430: Anion Gap 9, Estimated GFR > 60, Glucose 84, Calcium 8.4, Phosphorus 2.9, Magnesium 2.2, Total Bilirubin 2.4 H, AST 53 H, ALT 63 H, Albumin 2.9 L, CBC w Diff NO MAN DIFF REQ, RBC 3.09 L, MCV 105.9 H, MCH 36.0 H, MCHC 34.0, RDW 13.7, MPV 9.3, Gran % 65.4, Lymphocytes % 18.6 L, Monocytes % 13.8 H, Eosinophils % 1.7, Basophils % 0.5, Absolute Granulocytes 5.5, Absolute Lymphocytes 1.6, Absolute Monocytes 1.2 H, Absolute Eosinophils 0.1, Absolute Basophils 0 01/21/18 1200: APTT Cancelled Vital Signs Date Time Temp Pulse Resp B/P B/P Pulse O2 O2 Flow FiO2 Mean Ox Delivery Rate 01/24 0927 120 106/78 01/24 0925 120 106/78 01/24 0647 98.4 84 20 100/80 94 Room Air 01/237 99.5 131 16 103/90 96 Room Air 01/23 2057 110 104/72 01/23 2057 110 104/72 01/23 1456 138 118/80 01/23 1439 99.6 120 20 118/80 97 Room Air Intake & Output 01/24 1600 01/24 0800 01/24 0000 Intake Total 240 480 Output Total Balance 240 480 Intake, Oral 240 480 Patient 288 lb Weight
--- NOTE | 2018-01-24 12:39 | PN- Housestaff ---
Subjective Follow-up For: Atrial Fibrillation Alcohol Withdrawl Transaminitis Complaints: no complaints Tele-Events Since Last Visit: afib 98-145 overnight Subjective: Patient is asymptomatic. No events overnight. Has been scoring 0 on the CIWA for days. Review of Systems Constitutional: Reports: no symptoms. Objective Last 24 Hrs of Vital Signs/I&O Vital Signs Date Time Temp Pulse Resp B/P B/P Pulse O2 O2 Flow FiO2 Mean Ox Delivery Rate 01/24 1600 96 Room Air 01/24 1458 98.0 91 22 102/86 96 Room Air 01/24 0927 120 106/78 01/24 0925 120 106/78 01/24 0647 98.4 84 20 100/80 94 Room Air 01/23 2247 99.5 131 16 103/90 96 Room Air 01/23 2057 110 104/72 01/23 2057 110 104/72 Intake & Output 01/24 1600 01/24 0800 01/24 0000 Intake Total 880 240 480 Output Total Balance 880 240 480 Intake, Oral 880 240 480 Number 1 Bowel Movements Patient 288 lb Weight Physical Exam General Appearance: Alert, Oriented X3, Cooperative Skin: No Rashes, No Breakdown, No Significant Lesion Skin Temp/Moisture Exam: Warm/Dry Sepsis Skin Exam (color): Normal for Ethnicity Cardiovascular: Normal S1, Normal S2, No Murmurs Lungs: Clear to Auscultation, Normal Air Movement Abdomen: Normal Bowel Sounds, Soft, No Tenderness, No Hepatospenomegaly, No Masses Neurological: Normal Gait, Normal Speech Extremities: No Clubbing, No Cyanosis, No Edema, Normal Pulses, No Tenderness/ Swelling Vascular: Normal Pulses, Pulses Symmetrical Current Medications: Current Medications Sig/Antwon Start time Last Medication Dose Route Stop Time Status Admin Acetaminophen 650 MG Q6P PRN 01/19 1500 AC 01/19 PO 2241 Apixaban 5 MG BID 01/20 1344 AC 01/24 PO 0926 Aripiprazole 2 MG DAILY 01/20 0900 AC 01/24 PO 0925 Benzocaine/Menthol 1 LLOYD Q2P PRN 01/20 1345 AC PO Desvenlafaxine 100 MG DAILY 01/21 1630 AC 01/24 Succinate PO 0928 Diclofenac Sodium 1 ITALO 4 TIMES/DAY PRN 01/22 1130 AC 01/22 TOP 1412 Diltiazem HCl 180 MG BID 042099 AC 01/24 PO 0925 Famotidine 20 MG BID 01/19 2100 AC 01/24 PO 926 Folic Acid 1 MG DAILY 01/20 900 AC 01/24 PO 925 Lorazepam 0.5 MG DAILY PRN 01/21 930 AC 01/21 PO 01/28 Lorazepam 0 Q1P PRN 01/19 1600 AC IV Metoprolol Tartrate 100 MG BID 01/23 2100 AC 01/24 PO 926 Multivitamins 1 TAB DAILY 01/20 900 AC 01/24 PO 927 Thiamine HCl 100 MG DAILY 01/20 900 AC 01/24 PO 928 Last 24 Hrs of Lab/[place] Results Last 24 Hrs of Labs/Mics: Laboratory Tests 01/24/18631: Anion Gap 9, Estimated GFR > 60, BUN/Creatinine Ratio 12.5, CBC w Diff NO MAN DIFF REQ, RBC 2.97 L, MCV 104.7 H, MCH 35.5 H, MCHC 33.9, RDW 13.6, MPV 9.8, Gran % 64.7, Lymphocytes % 13.9 L, Monocytes % 18.4 H, Eosinophils % 2.2, Basophils % 0.8, Absolute Granulocytes 4.0, Absolute Lymphocytes 0.9 L, Absolute Monocytes 1.1 H, Absolute Eosinophils 0.1, Absolute Basophils 0.1 Orders CIWA Score (last 24 hrs): 0 Assessment/Plan Assessment: 62 YO obese F ex-smoker with PMH of HTN, GERD, depression, gastric bypass and SVT status post ablation came to ED with chief complaint of generalized weakness , decreased appetite, abdominal discomfort and cough for last couple of days. Plan 1. Atrial fibrillation with rapid ventricle response: - continue cardizem 180mg bid - Continue metoprolol 50 mg twice a day. - Continue Eliquis 5mg BID. - Echocardiogram shows borderline concentric left ventricular hypertrophy with mildly reduced global left ventricular systolic function with ejection fraction estimated at 40-45%. -Due to difficult to control heart rate, episode of shortness of breath and elevated d-dimer, Dr. Velarde recommended CTA to rule out PE. If a PE is indeed present the tachycardia will be a compensatory mechanism to maintain cardiac output and would be expected to be a transient issue that would not need copious medications. -As per Dr. Velarde, if patient remains tachycardic then we will consider a MARIHA to assess for thrombus and if none is present will proceed with a DC cardioversion. Alcohol withdrawal: - Patient has history of alcohol abuse - CIWA scores remain 0 since admission, dc CIWA scoring - Continue Thiamine and Folic acid supplementation Transient transaminitis: - Probably due to alcoholic liver disease Thrombocytopenia: -Probably due to alcoholic liver disease -Continue monitoring platelet count, improving. -Avoid any medication that decreases platelet count of function. -Follow-up anemia work-up History of Hypertension: -Continue her home medications History of GERD and gastric bypass: -Continue omeprazole History of depression: -Continue home medications Mild hyponatremia: -Continue to monitor BEP Diet: heart healthy diet DVT prophylaxis: Mechanical and the subcutaneous heparin Code Status: Full code Problem List: 1. Alcohol withdrawal 2. Rapid atrial fibrillation 3. acute cholecystitis 4. Transaminitis Pain Ratin Pain Location: na Pain Goal: Remain pain free Pain Plan: na Tomorrow's Labs & Rationales: cbc bep
--- NOTE | 2018-01-24 14:47 | PN- Cardiology ---
Subjective Subjective: * No complaints * atrial fibrillation with increased heart rate Objective Vital Signs and I&Os Vital Signs Date Time Temp Pulse Resp B/P B/P Pulse O2 O2 Flow FiO2 Mean Ox Delivery Rate 01/24 927 120 106/78 01/24 09 120 106/78 01/24 0647 98.4 84 20 100/80 94 Room Air 01/23 2247 99.5 131 16 103/90 96 Room Air 01/23 2057 110 104/72 01/23 2057 110 104/72 01/23 1456 138 118/80 Intake & Output 01/24 1600 01/24 0800 01/24 0000 01/23 1600 01/23 0801/23 0000 Intake Total 240 480 120 276 Output Total 200 Balance 240 480 120 76 Intake, IV 36 Intake, Oral 240 480 120 240 Number 0 Bowel Movements Output, Urine 200 Patient 288 lb 280 lb Weight Physical Exam: General: WD/WN female in NAD; alert and oriented x 3 Neck: no JVD Heart: irregularly irregular and tachycardic Lungs: clear bilaterally Exztremities: no edema Assessment/Plan Assessment/Plan * This obese patient has atrial fibrillation with rapid rate and evidence of right sided enlargement with increased D-dimer. She has also had shortness of breath although not at the moment while lying still. Obtain a CT angiogram to assess for a pulmonary embolism. Continue anticoagulation with Eliquis. Dosing of Eliquis is different for a PE. If a PE is indeed present the tachycardia will be a compensatory mechanism to maintain cardiac output and would be expected to be a transient issue that would not need copious medications. * Continue Metoprolol at 100mg BID and Cardizem at 180mg BID. * If patient remains tachycardic then we will consider a MARIAH to assess for thrombus and if none is present will proceed with a DC cardioversion. * Pursue an anemia workup Continue telemetry? Yes
[2018-01-24 14:58] VITALS: BP 102/86
--- NOTE | 2018-01-24 16:54 | CT SCAN REPORT ---
EXAMINATION: CT ANGIOGRAM OF THE CHEST WITH AND WITHOUT CONTRAST (CT PULMONARY ANGIOGRAM FOR PE) CLINICAL INFORMATION: Shortness of breath. Evaluate for acute pulmonary embolism. COMPARISON: Chest radiograph 01/19/2018. TECHNIQUE: Prior to contrast administration, noncontrast localization images were obtained. Subsequently, multidetector volumetric imaging was performed from the thoracic inlet to below the diaphragms following the administration of 95 mL Optiray 320 intravenous contrast. No contrast reaction reported. Sagittal, coronal, and MIP oblique sagittal reformatted images were obtained on the CT workstation, uploaded to PACS, and reviewed. Total exam dose-length product 548.7 mGy-cm. FINDINGS: The timing of the contrast injection provides adequate opacification of the pulmonary arterial vasculature. There is no central luminal filling defect to suggest the presence of an acute pulmonary embolism. Minimal bibasilar subsegmental atelectasis. Lungs are otherwise clear and well expanded. No consolidative disease. No worrisome pulmonary mass or nodule. There is no pleural effusion. No pneumothorax. The trachea and major airways are patent. Visualized portions of the thoracic outlet including the thyroid gland are normal. No acute osseous finding. Visualized portions of the upper abdomen reveals chronic changes of a Roxy-en-Y gastric bypass. The heart and the thoracic aorta are normal. No mediastinal adenopathy. IMPRESSION: Normal CT angiogram of the chest. Minimal bibasilar subsegmental atelectasis. No overt consolidative disease or effusion. No evidence of acute pulmonary embolism. VTE: negative
[2018-01-25 07:00] VITALS: BP 108/82
[2018-01-25 08:06] LABS: ABSOLUTE BASOPHIL COUNT 0 /CUMM (0.0-0.2); ABSOLUTE EOSINOPHIL COUNT 0.1 /CUMM (0.0-0.7); ABSOLUTE GRANULOCYTE CT 3.7 /CUMM (1.4-6.5); ABSOLUTE LYMPH COUNT 1.1 /CUMM (1.2-3.4); ABSOLUTE MONOCYTE COUNT 1.2 /CUMM (0.10-0.60); BASOPHIL % 0.8 % (0.0-2.0); GRANULOCYTE % 60.5 % (42.2-75.2); HEMATOCRIT 32.6 % (37-47); MEAN CORPUSCULAR HGB 35.3 PG (27.0-31.0); MEAN CORPUSCULAR HGB CONC 33.4 G/DL (33.0-37.0); MEAN CORPUSCULAR VOLUME 105.8 FL (81.0-99.0); MEAN PLATELET VOLUME 9.9 FL (7.4-10.4); PLATELET COUNT 100 /CUMM (130-400); RBC DISTRIBUTION WIDTH 14.1 % (11.5-14.5); RED BLOOD CELL CT 3.08 /CUMM (4.20-5.40); WHITE BLOOD CELL COUNT 6.2 /CUMM (4.8-10.8)
--- NOTE | 2018-01-25 12:01 | PN- Housestaff ---
Olman NICE,Jenny 01/25/18 1201: Subjective Follow-up For: Atrial Fibrillation Alcohol Withdrawl Transaminitis Tele-Events Since Last Visit: aflutter and afib 85-127 Subjective: patient denying any further cough or abdominal pain or diarrhea. Wants to speak to Dr. Linn prior to going NPO for MARIAH for a second opinion. Review of Systems Constitutional: Reports: no symptoms. Objective Last 24 Hrs of Vital Signs/I&O Vital Signs Date Time Temp Pulse Resp B/P B/P Pulse O2 O2 Flow FiO2 Mean Ox Delivery Rate 01/26 2000 128 78/00 01/25 1436 98.0 120 20 118/60 98 Room Air 01/25 0831 109 108/82 01/25 0831 109 108/82 01/25 0700 98.2 107 18 108/82 97 Room Air 01/24 2318 98.2 Intake & Output 01/25 1600 01/25 0800 01/25 0000 Intake Total 410 400 Output Total Balance 410 400 Intake, IV 10 Intake, Oral 400 400 Patient 366 lb Weight Physical Exam General Appearance: Alert, Oriented X3, Cooperative, No Acute Distress Skin: No Rashes, No Breakdown, No Significant Lesion Skin Temp/Moisture Exam: Warm/Dry Cardiovascular: Normal S1, Normal S2, No Murmurs Lungs: Clear to Auscultation, Normal Air Movement Abdomen: Normal Bowel Sounds, Soft, No Tenderness, No Hepatospenomegaly Neurological: Normal Speech Extremities: No Clubbing (d), No Cyanosis, No Edema Vascular: Normal Pulses, Pulses Symmetrical Current Medications: Current Medications Sig/Antwon Start time Last Medication Dose Route Stop Time Status Admin Acetaminophen 650 MG Q6P PRN 01/19 1500 AC 01/19 PO 2241 Apixaban 5 MG BID 01/20 1344 AC 01/25 PO 202 Aripiprazole 2 MG DAILY 01/20 0900 AC 01/25 PO 0831 Benzocaine/Menthol 1 LLOYD Q2P PRN 01/20 1345 AC PO Desvenlafaxine 100 MG DAILY 01/21 1630 AC 01/25 Succinate PO 0831 Diclofenac Sodium 1 ITALO 4 TIMES/DAY PRN 01/22 1130 AC 01/22 TOP 1412 Diltiazem HCl 180 MG BID 01/23 2100 AC 01/25 PO 0831 Famotidine 20 MG BID 01/19 2100 AC 01/25 PO 202 Folic Acid 1 MG DAILY 01/20 900 AC 01/25 PO 31 Lorazepam 0.5 MG DAILY PRN 01/21 930 AC 01/21 PO 01/28 Lorazepam 0 Q1P PRN 01/19 1600 AC IV Metoprolol Tartrate 150 MG BID 01/25 2100 AC PO Metoprolol Tartrate 100 MG BID 01/23 2100 DC 01/25 PO 08 Multivitamins 1 TAB DAILY 01/20 900 AC 01/25 PO 830 Sodium Chloride 500 ML BOLUS ONE 01/25 2030 AC 01/25 IV 01/25 Thiamine HCl 100 MG DAILY 01/20 900 AC 01/25 PO 30 Last 24 Hrs of Lab/[place] Results Last 24 Hrs of Labs/Mics: Laboratory Tests 01/25/18629: Anion Gap 6, Estimated GFR > 60, BUN/Creatinine Ratio 12.2, CBC w Diff NO MAN DIFF REQ, RBC 3.08 L, MCV 105.8 H, MCH 35.3 H, MCHC 33.4, RDW 14.1, MPV 9.9, Gran % 60.5, Lymphocytes % 17.5 L, Monocytes % 19.2 H, Eosinophils % 2.0, Basophils % 0.8, Absolute Granulocytes 3.7, Absolute Lymphocytes 1.1 L, Absolute Monocytes 1.2 H, Absolute Eosinophils 0.1, Absolute Basophils 0 Assessment/Plan Assessment: 62 YO obese F ex-smoker with PMH of HTN, GERD, depression, gastric bypass and SVT status post ablation came to ED with chief complaint of generalized weakness , decreased appetite, abdominal discomfort and cough for last couple of days. Found to have afib with RVR. Plan 1. Atrial fibrillation with rapid ventricle response: - continue cardizem 180mg bid - Continue metoprolol 50 mg twice a day. - Continue Eliquis 5mg BID. - Echocardiogram shows borderline concentric left ventricular hypertrophy with mildly reduced global left ventricular systolic function with ejection fraction estimated at 40-45%. -Due to difficult to control heart rate, episode of shortness of breath and elevated d-dimer, Dr. Velarde recommended CTA to rule out PE. It was negative. -As per Dr. Velarde, if patient remains tachycardic then we will consider a MARIAH to assess for thrombus and if none is present will proceed with a DC cardioversion. Today patient continues to be tachycardic but is refusing MARIAH and would like to speak to Dr. Linn for a second opinion. t -TFTs show normal t4 but high tsh. Subclinical hypothyroidism would not likely cause this afib with RVR. Alcohol withdrawal: - Patient has history of alcohol abuse - CIWA scores remain 0 since admission, we have dc'd ciwa - Continue Thiamine and Folic acid supplementation Anemia -Blood count 10.6 today -Iron labs show iron deficiency anemia -Consider starting iron tomorrow Transient transaminitis: - Probably due to alcoholic liver disease Thrombocytopenia: -Probably due to alcoholic liver disease -Continue monitoring platelet count, improving. -Avoid any medication that decreases platelet count of function. -Follow-up anemia work-up History of Hypertension: -Continue her home medications History of GERD and gastric bypass: -Continue omeprazole History of depression: -Continue home medications Mild hyponatremia: -Continue to monitor BEP Diet: heart healthy diet DVT prophylaxis: Mechanical and the subcutaneous heparin Code Status: Full code Problem List: 1. Transaminitis 2. Rapid atrial fibrillation Pain Ratin Pain Location: na Pain Goal: Remain pain free Pain Plan: na Tomorrow's Labs & Rationales: cbc bep Sonya Sadler 01/25/18 1408: Attending MD Review Statement Attending Statement Attending MD Statement: examined this patient, discuss w/resident/PA/[facility], agreed w/resident/[facility], discussed with family, reviewed EMR data (avail), discussed with nursing, discussed with case mgmt, reviewed images, amended to note Attending Assessment/Plan: Patient seen/examined bedside. Rapid A. fib- gradually improving but rate is still higher than expected. Continue diltiazem and metoprolol. CTA chest with no aortic dissection or PE. Minimal basilar atelectasis. Wait for further cardiology input. Plan for MARIAH and cardioversion as per cardiology. ECHO Mildly abnormal left ventricular ejection fraction estimated at 40-45% with global reduced systolic function likely tachycardia induced cardiomyopathy. Out of bed and ambulate.
[2018-01-25 14:36] VITALS: BP 118/60
[2018-01-25 20:00] VITALS: BP 78/00
[2018-01-25 22:00] VITALS: BP 100/60; BP 82/62
--- NOTE | 2018-01-25 22:13 | Event Note ---
Event Note Event Note: Situation: Patient was hypotensive 78/00. Brief: Ms Langston was admitted for control of rapid A.fib with RVR. Earlier during the day, Dr Linn had recommended to increase her metoprolol to 150mg BID. As the patient was hypotensive and tachycardic (heart rate in 140s), contacted Dr Linn. Per telephone conversation I was recommended to start the patient on digoxin. As the patient is obese she would require high loading dose. Recommendation was to load the patient with 0.25mg q6 x4 to a total of 1mg. A/R: Further management per primary team and summer intern.
[2018-01-25 23:03] VITALS: BP 82/60
[2018-01-26 00:09] VITALS: BP 90/70
[2018-01-26 01:23] VITALS: BP 102/70
[2018-01-26 03:39] VITALS: BP 108/70
[2018-01-26 07:23] VITALS: BP 126/90
[2018-01-26 08:10] LABS: ABSOLUTE BASOPHIL COUNT 0.1 /CUMM (0.0-0.2); ABSOLUTE EOSINOPHIL COUNT 0.1 /CUMM (0.0-0.7); ABSOLUTE GRANULOCYTE CT 2.6 /CUMM (1.4-6.5); BASOPHIL % 1.3 % (0.0-2.0); EOSINOPHIL % 2.5 % (0-5); GRANULOCYTE % 55.4 % (42.2-75.2); HEMATOCRIT 31.6 % (37-47); MEAN CORPUSCULAR HGB 35.7 PG (27.0-31.0); MEAN CORPUSCULAR HGB CONC 33.6 G/DL (33.0-37.0); MEAN CORPUSCULAR VOLUME 106.1 FL (81.0-99.0); MEAN PLATELET VOLUME 9.2 FL (7.4-10.4); PLATELET COUNT 98 /CUMM (130-400); RED BLOOD CELL CT 2.98 /CUMM (4.20-5.40); WHITE BLOOD CELL COUNT 4.8 /CUMM (4.8-10.8)
--- NOTE | 2018-01-26 08:34 | PN- Housestaff ---
Olman NICE,Jenny 01/26/18 0834: Subjective Follow-up For: Atrial Fibrillation Alcohol Withdrawl Transaminitis Complaints: no complaints Tele-Events Since Last Visit: overnight patient had elevated HR's up to 150 afib Subjective: Overnight patient had a bout of low blood pressure to 78 systolic, her heart rates are found to be up to 150. She was given metoprolol 100 which was suggested by cardio earlier except that his dose of 150, and detective and intelligence analyst was called. He suggested starting digoxin with a loading dose of 0.25 mg every 64 for a total of 1 mg. The patient was not experiencing any chest pain, shortness of breath, palpitations at the time. Weakness or dizziness. Review of Systems Constitutional: Reports: no symptoms. Cardiovascular: Reports: no symptoms. Respiratory: Reports: no symptoms. Gastrointestinal: Reports: no symptoms. Genitourinary: Reports: no symptoms. Objective Last 24 Hrs of Vital Signs/I&O Vital Signs Date Time Temp Pulse Resp B/P B/P Pulse O2 O2 Flow FiO2 Mean Ox Delivery Rate 01/26 1444 98.1 67 20 106/74 97 Room Air 01/26 1025 102 104/74 01/26 0821 125 104/90 01/26 0723 98.4 88 18 126/90 96 01/26 0422 102 108/70 01/26 0339 102 108/70 01/26 0123 102/70 01/26 0009 90/70 01/25 2308 129 82/60 01/25 2303 130 82/60 01/25 2200 124 100/60 01/25 2200 98.4 110 18 98 Room Air 01/25 2158 109 100/70 01/25 2000 128 78/00 Intake & Output 01/26 1600 01/26 0800 01/26 0000 Intake Total 470 980 980 Output Total 400 1450 300 Balance 70 -470 680 Intake, IV 20 500 500 Intake, Oral 450 480 480 Number 0 1 Bowel Movements Output, Urine 400 1450 300 Patient 286 lb Weight Weight Bed scale Measurement Method Physical Exam General Appearance: Alert, Oriented X3, Cooperative, No Acute Distress Skin: No Rashes, No Breakdown, No Significant Lesion HEENT: Atraumatic, PERRLA, EOMI, Mucous Membr. moist/pink Cardiovascular: Normal S1, Normal S2, No Murmurs Lungs: Clear to Auscultation, Normal Air Movement Abdomen: Normal Bowel Sounds, Soft, No Tenderness Neurological: Normal Speech Extremities: No Clubbing, No Cyanosis, No Edema, Normal Pulses, No Tenderness/ Swelling Current Medications: Current Medications Sig/Antwon Start time Last Medication Dose Route Stop Time Status Admin Acetaminophen 650 MG Q6P PRN 01/19 1500 AC 01/19 PO 2241 Apixaban 5 MG BID 01/20 1344 AC 01/26 PO 0820 Aripiprazole 2 MG DAILY 01/20 0900 AC 01/26 PO 0821 Benzocaine/Menthol 1 LLOYD Q2P PRN 01/20 1345 AC PO Desvenlafaxine 100 MG DAILY 01/21 1630 AC 01/26 Succinate PO 0821 Dextrose 25 GM ONCE ONE 01/26 0700 CAN IV 01/26 0701 Diclofenac Sodium 1 ITALO 4 TIMES/DAY PRN 01/22 1130 AC 01/22 TOP 1412 Digoxin 0.25 MG ONCE ONE 01/26 1630 AC IV 01/26 1631 Digoxin 0.25 MG ONCE ONE 01/26 1000 DC 01/26 IV 01/26 1001 1025 Digoxin 0.25 MG ONCE ONE 01/26 0415 DC 01/26 IV 01/26 0416 0422 Digoxin 0.25 MG ONCE ONE 01/25 2215 DC 01/25 IV 01/25 2216 2308 Diltiazem HCl 180 MG BID 01/23 2100 AC 01/26 PO 0821 Famotidine 20 MG BID 01/19 2100 AC 01/26 PO 0820 Folic Acid 1 MG DAILY 01/20 0900 AC 01/26 PO 0820 Lorazepam 0.5 MG DAILY PRN 01/21 0930 AC 01/21 PO 01/28 0929 0930 Lorazepam 0 Q1P PRN 01/19 1600 AC IV Metoprolol Tartrate 100 MG BID 01/26 2100 AC PO Metoprolol Tartrate 100 MG ONCE ONE 01/25 2145 DC 01/25 PO 01/25 2146 2158 Metoprolol Tartrate 150 MG BID 01/25 2100 DC 01/26 PO 1212 Metoprolol Tartrate 100 MG BID 01/23 2100 DC 01/25 PO 0831 Multivitamins 1 TAB DAILY 01/20 0900 AC 01/26 PO 0819 Sodium Chloride 500 ML BOLUS ONE 01/25 2315 DC 01/25 IV 01/26 0014 2317 Sodium Chloride 500 ML BOLUS ONE 01/25 2030 DC 01/25 IV 01/25 Thiamine HCl 100 MG DAILY 01/20 0900 AC 01/26 PO 0819 Last 24 Hrs of Lab/[place] Results Last 24 Hrs of Labs/Mics: Laboratory Tests 01/26/18 0718: Anion Gap 9, Estimated GFR > 60, BUN/Creatinine Ratio 13.8, CBC w Diff NO MAN DIFF REQ, RBC 2.98 L, MCV 106.1 H, MCH 35.7 H, MCHC 33.6, RDW 14.0, MPV 9.2, Gran % 55.4, Lymphocytes % 20.9, Monocytes % 19.9 H, Eosinophils % 2.5, Basophils % 1.3, Absolute Granulocytes 2.6, Absolute Lymphocytes 1.0 L, Absolute Monocytes 1.0 H, Absolute Eosinophils 0.1, Absolute Basophils 0.1 Assessment/Plan Assessment: 62 YO obese F ex-smoker with PMH of HTN, GERD, depression, gastric bypass and SVT status post ablation came to ED with chief complaint of generalized weakness , decreased appetite, abdominal discomfort and cough for last couple of days. Found to have afib with RVR. Plan 1. Atrial fibrillation with rapid ventricle response: - continue cardizem 180mg bid - Continue metoprolol 100 mg twice a day with holding parameters - Continue Eliquis 5mg BID. - Echocardiogram shows borderline concentric left ventricular hypertrophy with mildly reduced global left ventricular systolic function with ejection fraction estimated at 40-45%. -Due to difficult to control heart rate, episode of shortness of breath and elevated d-dimer, Dr. Velarde recommended CTA to rule out PE. It was negative. -We will continue patient on above meds and have loaded her with digoxin. We will reassess tomorrow for continuation of digoxin. As per Dr. Linn, who will become her regular detective and intelligence analyst, we will continue her on rate controlling medications and she will get a cardioversion in 3-4 weeks. -TFTs show normal t4 but high tsh. Subclinical hypothyroidism would not likely cause this afib with RVR. Alcohol withdrawal: - Patient has history of alcohol abuse - CIWA scores remain 0 since admission, we have dc'd ciwa - Continue Thiamine and Folic acid supplementation Anemia -Iron labs show iron deficiency anemia -Replete with ferrous sulfate Transient transaminitis: -Probably due to alcoholic liver disease and will resolve in time Thrombocytopenia: -Probably due to alcoholic liver disease -Continue monitoring platelet count, improving. -Avoid any medication that decreases platelet count of function. -Follow-up anemia work-up History of GERD and gastric bypass: -Continue omeprazole History of depression: -Continue home medications Mild hyponatremia: -Continue to monitor BEP Diet: heart healthy diet DVT prophylaxis: Mechanical and the subcutaneous heparin Code Status: Full code Problem List: 1. Transaminitis 2. Rapid atrial fibrillation Pain Ratin Pain Location: na Pain Goal: Remain pain free Pain Plan: na Tomorrow's Labs & Rationales: cbc bep Sonya Sadler 01/26/18 1129: Attending MD Review Statement Attending Statement Attending MD Statement: examined this patient, discuss w/resident/PA/[facility] [employer], agreed w/resident/PA/[facility], discussed with family, reviewed EMR data (avail), discussed with nursing, discussed with case mgmt, reviewed images, amended to note Attending Assessment/Plan: Patient seen/examined bedside. Concerns addressed. BP borderline HR 125 MAX Rapid A. fib- gradually improving but rate is still higher than expected. Continue diltiazem and metoprolol, Added digoxin iv overnight, follow protocol. F/u cardiology. Plan for MARIAH and cardioversion as per cardiology outpatient. ECHO Mildly abnormal left ventricular ejection fraction estimated at 40-45% with global reduced systolic function likely tachycardia induced cardiomyopathy. Cont current care , monitor heart rate. gi/dvt prophyalxis full code.
--- NOTE | 2018-01-26 09:47 | PN- Cardiology ---
Subjective Subjective: Had plans to increase her metoprolol from 100 mg twice daily to 150 mg twice daily starting last evening, but her blood pressure was found to be on the low side it was decided to initiate therapy with digoxin. Thus far, she has received digoxin 0.25 mg 2 with a third dose pending at 10 AM this morning. Because of her low blood pressure readings last evenings metoprolol was not given. Objective Vital Signs and I&Os Vital Signs Date Time Temp Pulse Resp B/P B/P Pulse O2 O2 Flow FiO2 Mean Ox Delivery Rate 01/26 821 125 104/90 01/26 07 98.4 88 18 126/90 96 01/26 0422 102 108/70 01/26 0339 102 108/70 01/26 0123 102/70 01/26 0009 90/70 01/25 2308 129 82/60 01/25 2303 130 82/60 01/25 2200 124 100/60 01/25 2200 98.4 110 18 98 Room Air 01/25 2158 109 100/70 01/25 2000 128 78/00 01/25 1436 98.0 120 20 118/60 98 Room Air Intake & Output 01/26 1600 01/26 0800 01/26 0000 01/25 1600 01/25 0800 01/25 0000 Intake Total 980 980 410 400 Output Total 1450 300 Balance -470 680 410 400 Intake, IV 500 500 10 Intake, Oral 480 480 400 400 Number 0 1 Bowel Movements Output, Urine 1450 300 Patient 286 lb 366 lb Weight Weight Bed scale Measurement Method Physical Exam: Well-developed, obese middle-aged female in no acute distress. Vital signs: See above. Neck: No JVD, no bruits. Lungs: Clear to auscultation bilaterally. Heart: S1, S2 (irregularly, irregular). Murmur, gallop, or rub. Abdomen: Soft, nontender, positive bowel sounds. Extremities: No edema. Current Medications: Current Medications Sig/Antwon Start time Last Medication Dose Route Stop Time Status Admin Acetaminophen 650 MG Q6P PRN 01/19 1500 AC 01/19 PO 2241 Apixaban 5 MG BID 01/20 1344 AC 01/26 PO 0820 Aripiprazole 2 MG DAILY 01/20 0900 AC 01/26 PO 0821 Benzocaine/Menthol 1 LLOYD Q2P PRN 01/20 1345 AC PO Desvenlafaxine 100 MG DAILY 01/21 1630 AC 01/26 Succinate PO 0821 Dextrose 25 GM ONCE ONE 01/26 0700 CAN IV 01/26 0701 Diclofenac Sodium 1 ITALO 4 TIMES/DAY PRN 01/22 1130 AC 01/22 TOP 1412 Digoxin 0.25 MG ONCE ONE 01/26 1000 UNVr IV 01/26 1001 Digoxin 0.25 MG ONCE ONE 01/26 0415 DC 01/26 IV 01/26 0416 0422 Digoxin 0.25 MG ONCE ONE 01/25 2215 DC 01/25 IV 01/25 2216 2308 Diltiazem HCl 180 MG BID 01/23 2100 AC 01/26 PO 0821 Famotidine 20 MG BID 01/19 2100 AC 01/26 PO 0820 Folic Acid 1 MG DAILY 01/20 0900 AC 01/26 PO 0820 Lorazepam 0.5 MG DAILY PRN 01/21 0930 AC 01/21 PO 01/28 0929 0930 Lorazepam 0 Q1P PRN 01/19 1600 AC IV Metoprolol Tartrate 100 MG ONCE ONE 01/25 2145 DC 01/25 PO 01/25 2146 2158 Metoprolol Tartrate 150 MG BID 01/25 2100 AC PO Metoprolol Tartrate 100 MG BID 01/23 2100 DC 01/25 PO 0831 Multivitamins 1 TAB DAILY 01/20 0900 AC 01/26 PO 0819 Sodium Chloride 500 ML BOLUS ONE 01/25 2315 DC 01/25 IV 01/26 0014 2317 Sodium Chloride 500 ML BOLUS ONE 01/25 2030 DC 01/25 IV 01/25 2129 202 Thiamine HCl 100 MG DAILY 01/20 0900 AC 01/26 PO 0819 Results Last 48 Hrs of Labs/Mics: Laboratory Tests 01/26/18 0718: Anion Gap 9, Estimated GFR > 60, BUN/Creatinine Ratio 13.8, CBC w Diff NO MAN DIFF REQ, RBC 2.98 L, MCV 106.1 H, MCH 35.7 H, MCHC 33.6, RDW 14.0, MPV 9.2, Gran % 55.4, Lymphocytes % 20.9, Monocytes % 19.9 H, Eosinophils % 2.5, Basophils % 1.3, Absolute Granulocytes 2.6, Absolute Lymphocytes 1.0 L, Absolute Monocytes 1.0 H, Absolute Eosinophils 0.1, Absolute Basophils 0.1 01/25/18 0630: Anion Gap 6, Estimated GFR > 60, BUN/Creatinine Ratio 12.2, CBC w Diff NO MAN DIFF REQ, RBC 3.08 L, MCV 105.8 H, MCH 35.3 H, MCHC 33.4, RDW 14.1, MPV 9.9, Gran % 60.5, Lymphocytes % 17.5 L, Monocytes % 19.2 H, Eosinophils % 2.0, Basophils % 0.8, Absolute Granulocytes 3.7, Absolute Lymphocytes 1.1 L, Absolute Monocytes 1.2 H, Absolute Eosinophils 0.1, Absolute Basophils 0 Assessment/Plan Assessment/Plan 62-y-o-w-f w/ hx of former tobacco use, obesity s/p bariatric surgery (gastric bypass), HTN, & SVT s/p catheter ablation in March 2016 at [facility] (Eliot Rodriguez M.D.) who presented w/ c/o decreased appetite, weakness, and paroxysms of coughing, dry heaves, abdominal pain 2/2 her inability to mobilize phlegm that lodges in her throat that has been occurring since December 2017 & sought medical attention after experiencing 3 such episodes on the morning of 01/18/2018 when she was discovered to be in AF w/ a RVR that has responded to by mouth diltiazem and metoprolol, but is not yet adequately controlled. Unfortunately, she became hypotensive last evening which precluded our being able to give her planned higher dose of metoprolol. Instead, he began loading her with digoxin which is ongoing. We will continue her on diltiazem 180 mg twice daily and, as her blood pressure allows, the metoprolol 100 mg twice daily. We will also continue her on the Eliquis (apixaban) for anticoagulation. Continue telemetry? Yes
--- NOTE | 2018-01-26 09:54 | PN- Cardiology ---
Subjective Subjective: No complaints. Remains in atrial fibrillation with a ventricular response in the 90 to low 100s. Objective Vital Signs and I&Os Vital Signs Date Time Temp Pulse Resp B/P B/P Pulse O2 O2 Flow FiO2 Mean Ox Delivery Rate 01/25 1436 98.0 120 20 118/60 98 Room Air 01/25 0831 109 108/82 01/25 0831 109 108/82 01/25 0700 98.2 107 18 108/82 97 Room Air 01/24 2318 98.2 01/24 2042 116 118/82 01/24 2042 116 118/82 Intake & Output 01/25 1600 01/25 0800 01/25 0000 01/24 1600 01/24 0800 01/24 0000 Intake Total 410 400 880 240 480 Output Total Balance 410 400 880 240 480 Intake, IV 10 Intake, Oral 400 400 880 240 480 Number 1 Bowel Movements Patient 366 lb 288 lb Weight Physical Exam: Well-developed, obese middle-aged female in no acute distress. Vital signs: See above. Neck: No JVD, no bruits. Lungs: Clear to auscultation bilaterally. Heart: S1, S2 (irregularly, irregular). Murmur, gallop, or rub. Abdomen: Soft, nontender, positive bowel sounds. Extremities: No edema. Current Medications: Current Medications Sig/Antwon Start time Last Medication Dose Route Stop Time Status Admin Acetaminophen 650 MG Q6P PRN 01/19 1500 AC 01/19 PO 2241 Apixaban 5 MG BID 01/20 1344 AC 01/25 PO 0831 Aripiprazole 2 MG DAILY 01/20 0900 AC 01/25 PO 0831 Benzocaine/Menthol 1 LLOYD Q2P PRN 01/20 1345 AC PO Desvenlafaxine 100 MG DAILY 01/21 1630 AC 01/25 Succinate PO 0831 Diclofenac Sodium 1 ITALO 4 TIMES/DAY PRN 01/22 1130 AC 01/22 TOP 1412 Diltiazem HCl 180 MG BID 01/23 2100 AC 01/25 PO 0831 Famotidine 20 MG BID 01/19 2100 AC 01/25 PO 0831 Folic Acid 1 MG DAILY 01/20 0900 AC 01/25 PO 0831 Lorazepam 0.5 MG DAILY PRN 01/21 0930 AC 01/21 PO 01/28 0929 0930 Lorazepam 0 Q1P PRN 01/19 1600 AC IV Metoprolol Tartrate 100 MG BID 01/23 2100 AC 01/25 PO 0831 Multivitamins 1 TAB DAILY 01/20 0900 AC 01/25 PO 0831 Thiamine HCl 100 MG DAILY 01/20 09 AC 01/25 PO 0830 Results Last 48 Hrs of Labs/Mics: Laboratory Tests 01/25/18 0630: Anion Gap 6, Estimated GFR > 60, BUN/Creatinine Ratio 12.2, CBC w Diff NO MAN DIFF REQ, RBC 3.08 L, MCV 105.8 H, MCH 35.3 H, MCHC 33.4, RDW 14.1, MPV 9.9, Gran % 60.5, Lymphocytes % 17.5 L, Monocytes % 19.2 H, Eosinophils % 2.0, Basophils % 0.8, Absolute Granulocytes 3.7, Absolute Lymphocytes 1.1 L, Absolute Monocytes 1.2 H, Absolute Eosinophils 0.1, Absolute Basophils 0 01/24/18 0632: Anion Gap 9, Estimated GFR > 60, BUN/Creatinine Ratio 12.5, Iron 35 L, TIBC 250 L, Ferritin 149.0, CBC w Diff NO MAN DIFF REQ, RBC 2.97 L, MCV 104.7 H, MCH 35.5 H, MCHC 33.9, RDW 13.6, MPV 9.8, Gran % 64.7, Lymphocytes % 13.9 L, Monocytes % 18.4 H, Eosinophils % 2.2, Basophils % 0.8, Absolute Granulocytes 4.0, Absolute Lymphocytes 0.9 L, Absolute Monocytes 1.1 H, Absolute Eosinophils 0.1, Absolute Basophils 0.1 Recent Imaging Studies: Chest CTA 01/24/2018: Normal CT angiogram of the chest. Minimal bibasilar subsegmental atelectasis. No overt consolidative disease or effusion. No evidence of acute pulmonary embolism. VTE: negative Assessment/Plan Assessment/Plan 62-y-o-w-f w/ hx of former tobacco use, obesity s/p bariatric surgery (gastric bypass), HTN, & SVT s/p catheter ablation in March 2016 at [facility] (Eliot Rodriguez M.D.) who presented w/ c/o decreased appetite, weakness, and paroxysms of coughing, dry heaves, abdominal pain 2/2 her inability to mobilize phlegm that lodges in her throat that has been occurring since December 2017 & sought medical attention after experiencing 3 such episodes on the morning of 01/18/2018 when she was discovered to be in AF w/ a RVR that has responded to by mouth diltiazem and metoprolol, but is not yet adequately controlled. Her blood pressure is adequate, so we will increase her metoprolol to 150 mg twice daily and continue her on the diltiazem 180 mg twice daily. Continue Eliquis for anticoagulation. Continue telemetry? Yes
[2018-01-26 14:44] VITALS: BP 106/74
[2018-01-26 21:10] VITALS: BP 120/60
[2018-01-27 06:38] VITALS: BP 138/66
--- NOTE | 2018-01-27 07:36 | PN- Housestaff ---
Olman NICE,Jenny 01/27/18 0736: Subjective Follow-up For: afib Complaints: no complaints Tele-Events Since Last Visit: afib 75-105 Subjective: Patient feeling good today. Happy about lower heart rate. No complaints. Review of Systems Constitutional: Reports: no symptoms. Cardiovascular: Reports: edema. Objective Last 24 Hrs of Vital Signs/I&O Vital Signs Date Time Temp Pulse Resp B/P B/P Pulse O2 O2 Flow FiO2 Mean Ox Delivery Rate 01/27 0638 98.3 70 18 138/66 97 Room Air 01/26 2204 97.8 83 18 99 01/26 2110 94 120/60 01/26 2107 84 120/80 01/26 2107 78 120/80 01/26 1707 90 106/74 01/26 1444 98.1 67 20 106/74 97 Room Air 01/26 1025 102 104/74 01/26 0821 125 104/90 Intake & Output 01/27 1600 01/27 0800 01/27 0000 Intake Total 720 480 Output Total 2100 Balance -1380 480 Intake, Oral 720 480 Number 0 1 Bowel Movements Output, Urine 2100 Patient 285 lb Weight Physical Exam General Appearance: Alert, Oriented X3, Cooperative, No Acute Distress Skin: No Rashes, No Breakdown, No Significant Lesion Skin Temp/Moisture Exam: Warm/Dry Sepsis Skin Exam (color): Normal for Ethnicity HEENT: Atraumatic, EOMI, Mucous Membr. moist/pink Cardiovascular: Normal S1, Normal S2, No Murmurs Lungs: Clear to Auscultation, Normal Air Movement Abdomen: Normal Bowel Sounds, Soft, No Tenderness, No Hepatospenomegaly Neurological: Normal Speech Extremities: No Clubbing, No Cyanosis, Normal Pulses, extensive lower extremity edema Current Medications: Current Medications Sig/Antwon Start time Last Medication Dose Route Stop Time Status Admin Acetaminophen 650 MG .STK-MED ONE 01/26 1734 DC PO 01/26 1735 Acetaminophen 650 MG Q6P PRN 01/19 1500 AC 01/26 PO 1735 Apixaban 5 MG BID 01/20 1344 AC 01/26 PO 2106 Aripiprazole 2 MG DAILY 01/20 0900 AC 01/26 PO 0821 Benzocaine/Menthol 1 LLOYD Q2P PRN 01/20 1345 AC PO Desvenlafaxine 100 MG DAILY 04/19 1630 AC 01/26 Succinate PO 0821 Diclofenac Sodium 1 ITALO 4 TIMES/DAY PRN 01/22 1130 AC 01/22 TOP 1412 Digoxin 0.25 MG ONCE ONE 01/26 1630 DC 01/26 IV 01/26 1631 1707 Digoxin 0.25 MG ONCE ONE 01/26 1000 DC 01/26 IV 01/26 1001 1025 Diltiazem HCl 180 MG BID 01/23 2100 AC 01/26 PO 2107 Famotidine 20 MG BID 01/19 2100 AC 01/26 PO 2106 Ferrous Sulfate 325 MG DAILY 01/26 1542 AC 01/26 PO 1735 Folic Acid 1 MG DAILY 01/20 0900 AC 01/26 PO 0820 Lorazepam 0.5 MG DAILY PRN 01/21 0930 AC 01/27 PO 01/28 0929 0114 Lorazepam 0 Q1P PRN 01/19 1600 DC IV Metoprolol Tartrate 100 MG BID 01/26 2100 AC 01/26 PO 2107 Metoprolol Tartrate 150 MG BID 01/25 2100 DC 01/26 PO 1212 Multivitamins 1 TAB DAILY 01/20 0900 AC 01/26 PO 0819 Patient Medication 1 ED ONE ONE 01/26 1700 DC Teaching ED 01/26 1701 Thiamine HCl 100 MG DAILY 01/20 0900 AC 01/26 PO 0819 Last 24 Hrs of Lab/[place] Results Last 24 Hrs of Labs/Mics: Laboratory Tests 01/27/18 0635: CBC w Diff Pending, WBC Pending, RBC Pending, Hgb Pending, Hct Pending, MCV Pending, MCH Pending, MCHC Pending, RDW Pending, Plt Count Pending, MPV Pending, Digoxin Pending Assessment/Plan Assessment: 62 YO obese F ex-smoker with PMH of HTN, GERD, depression, gastric bypass and SVT status post ablation came to ED with chief complaint of generalized weakness , decreased appetite, abdominal discomfort and cough for last couple of days. Found to have afib with RVR. Plan 1. Atrial fibrillation with rapid ventricle response: overnight better control. However patient did have BP on the lower side 92/64 with rates from 70's-90's. - continue cardizem 180mg bid - Continue metoprolol 100 mg twice a day with holding parameters - Continue Eliquis 5mg BID. - Echocardiogram shows borderline concentric left ventricular hypertrophy with mildly reduced global left ventricular systolic function with ejection fraction estimated at 40-45%. -Due to difficult to control heart rate, episode of shortness of breath and elevated d-dimer, Dr. Velarde recommended CTA to rule out PE. It was negative. -We will continue patient on above meds and have loaded her with digoxin. Continue digoxin daily .125mg and check level in one week. As per Dr. 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 -TFTs show normal t4 but high tsh. Subclinical hypothyroidism would not likely cause this afib with RVR. Alcohol withdrawal: - Patient has history of alcohol abuse - CIWA scores remain 0 since admission, we have dc'd ciwa - Continue Thiamine and Folic acid supplementation Anemia -Iron labs show iron deficiency anemia -Replete with ferrous sulfate Transient transaminitis: -Probably due to alcoholic liver disease and will resolve in time Thrombocytopenia: -Probably due to alcoholic liver disease -Continue monitoring platelet count, improving. -Avoid any medication that decreases platelet count of function. -Follow-up anemia work-up History of GERD and gastric bypass: -Continue omeprazole History of depression: -Continue home medications Mild hyponatremia: -Continue to monitor BEP Lower extremity edema -We have instructed patient to sit with feet up and use compression stockings -As patient has lower blood pressure, would like to avoid diuretics Diet: heart healthy diet DVT prophylaxis: Mechanical and the subcutaneous heparin Code Status: Full code Problem List: 1. Rapid atrial fibrillation Pain Ratin Pain Location: na Pain Goal: Remain pain free Pain Plan: na Tomorrow's Labs & Rationales: cbc bep ViktoriyaSonya 01/27/18 1105: Attending MD Review Statement Attending Statement Attending MD Statement: examined this patient, discuss w/resident/PA/PICKER MACHINE OPERATOR, agreed w/resident/PA/PICKER MACHINE OPERATOR, discussed with family, reviewed EMR data (avail), discussed with nursing, discussed with case mgmt, reviewed images, amended to note Attending Assessment/Plan: Patient seen/examined bedside. BP borderline. Asymptomatic deneis chest pain, palpiatiosn and dyspnea on exertion. Rapid A. fib- gradually improving rate controlled. Continue diltiazem and metoprolol, digoxin PO. F/u cardiology. Plan for MARIAH and cardioversion as per cardiology outpatient. ECHO Mildly abnormal left ventricular ejection fraction estimated at 40-45% with global reduced systolic function likely tachycardia induced cardiomyopathy. Anticipate dc planning if ok with cardiology.
[2018-01-27 08:46] LABS: ABSOLUTE BASOPHIL COUNT 0 /CUMM (0.0-0.2); ABSOLUTE EOSINOPHIL COUNT 0.1 /CUMM (0.0-0.7); ABSOLUTE GRANULOCYTE CT 2.3 /CUMM (1.4-6.5); ABSOLUTE LYMPH COUNT 0.9 /CUMM (1.2-3.4); ABSOLUTE MONOCYTE COUNT 0.9 /CUMM (0.10-0.60); BASOPHIL % 1.1 % (0.0-2.0); EOSINOPHIL % 2.2 % (0-5); GRANULOCYTE % 53.5 % (42.2-75.2); HEMATOCRIT 33.2 % (37-47); MEAN CORPUSCULAR VOLUME 105.8 FL (81.0-99.0); MEAN PLATELET VOLUME 8.5 FL (7.4-10.4); RBC DISTRIBUTION WIDTH 13.1 % (11.5-14.5); RED BLOOD CELL CT 3.13 /CUMM (4.20-5.40); WHITE BLOOD CELL COUNT 4.2 /CUMM (4.8-10.8)
[2018-01-27 09:38] VITALS: BP 90/64
[2018-01-27 10:22] LABS: PLATELET COUNT 179 /CUMM (130-400)
[2018-01-27 10:53] VITALS: BP 112/66
--- NOTE | 2018-01-27 11:02 | PN- Cardiology ---
Subjective Subjective: No complaints. The ventricular response to her atrial fibrillation is now under adequate control. Objective Vital Signs and I&Os Vital Signs Date Time Temp Pulse Resp B/P B/P Pulse O2 O2 Flow FiO2 Mean Ox Delivery Rate 01/27 0938 90/64 01/27 0638 98.3 70 18 138/66 97 Room Air 01/26 2204 97.8 83 18 99 01/26 2110 94 120/60 01/26 2107 84 120/80 01/26 2107 78 120/80 01/26 1707 90 106/74 01/26 1444 98.1 67 20 106/74 97 Room Air Intake & Output 01/27 1600 01/27 0800 01/27 0000 01/26 1600 01/26 0800 01/26 0000 Intake Total 720 480 470 980 980 Output Total 2100 400 1450 300 Balance -1380 480 70 -470 680 Intake, IV 20 500 500 Intake, Oral 720 480 450 480 480 Number 0 1 0 1 Bowel Movements Output, Urine 2100 400 1450 300 Patient 285 lb 286 lb Weight Weight Bed scale Measurement Method Physical Exam: Well-developed, obese middle-aged female in no acute distress. Vital signs: See above. Neck: No JVD, no bruits. Lungs: Clear to auscultation bilaterally. Heart: S1, S2 (irregularly, irregular). Murmur, gallop, or rub. Abdomen: Soft, nontender, positive bowel sounds. Extremities: No edema. Current Medications: Current Medications Sig/Antwon Start time Last Medication Dose Route Stop Time Status Admin Acetaminophen 650 MG .STK-MED ONE 01/26 1734 DC PO 01/26 1735 Acetaminophen 650 MG Q6P PRN 01/19 1500 AC 01/26 PO 1735 Apixaban 5 MG BID 01/20 1344 AC 01/27 PO 0921 Aripiprazole 2 MG DAILY 01/20 0900 AC 01/27 PO 0921 Benzocaine/Menthol 1 LLOYD Q2P PRN 01/20 1345 AC PO Desvenlafaxine 100 MG DAILY 01/21 1630 AC 01/27 Succinate PO 0922 Diclofenac Sodium 1 ITALO 4 TIMES/DAY PRN 01/22 1130 AC 01/22 TOP 1412 Digoxin 0.125 MG 1700 01/27 1700 AC PO Digoxin 0.25 MG ONCE ONE 01/26 1630 DC 01/26 IV 01/26 1631 1707 Diltiazem HCl 180 MG BID 01/23 2100 AC 01/26 PO 2106 Famotidine 20 MG BID 01/19 2100 AC 01/27 PO 09 Ferrous Sulfate 325 MG DAILY 01/26 1542 AC 01/27 PO 09 Folic Acid 1 MG DAILY 01/20 09 AC 01/27 PO 09 Lorazepam 0.5 MG DAILY PRN 01/21 0930 AC 01/27 PO 01/28 09 0114 Lorazepam 0 Q1P PRN 01/19 1600 DC IV Metoprolol Tartrate 100 MG BID 01/26 2100 AC 01/26 PO 2106 Metoprolol Tartrate 150 MG BID 01/25 2100 DC 01/26 PO 1212 Multivitamins 1 TAB DAILY 01/20 900 AC 01/27 PO 09 Patient Medication 1 ED ONE ONE 01/26 1700 DC Teaching ED 01/26 170 Thiamine HCl 100 MG DAILY 01/20 09 AC 01/27 PO 920 Results Last 48 Hrs of Labs/Mics: Laboratory Tests 01/27/18 0635: CBC w Diff NO MAN DIFF REQ, RBC 3.13 L, MCV 105.8 H, MCH 36.0 H, MCHC 34.0, RDW 13.1, MPV 8.5, Gran % 53.5, Lymphocytes % 22.4, Monocytes % 20.8 H, Eosinophils % 2.2, Basophils % 1.1, Absolute Granulocytes 2.3, Absolute Lymphocytes 0.9 L, Absolute Monocytes 0.9 H, Absolute Eosinophils 0.1, Absolute Basophils 0, Digoxin 1.4 01/26/18 0718: Anion Gap 9, Estimated GFR > 60, BUN/Creatinine Ratio 13.8, CBC w Diff NO MAN DIFF REQ, RBC 2.98 L, MCV 106.1 H, MCH 35.7 H, MCHC 33.6, RDW 14.0, MPV 9.2, Gran % 55.4, Lymphocytes % 20.9, Monocytes % 19.9 H, Eosinophils % 2.5, Basophils % 1.3, Absolute Granulocytes 2.6, Absolute Lymphocytes 1.0 L, Absolute Monocytes 1.0 H, Absolute Eosinophils 0.1, Absolute Basophils 0.1 Assessment/Plan Assessment/Plan 62-y-o-w-f w/ hx of former tobacco use, obesity s/p bariatric surgery (gastric bypass), HTN, & SVT s/p catheter ablation in March 2016 at [facility] (Eliot Rodriguez M.D.) who presented w/ c/o decreased appetite, weakness, and paroxysms of coughing, dry heaves, abdominal pain 2/2 her inability to mobilize phlegm that lodges in her throat that has been occurring since December 2017 & sought medical attention after experiencing 3 such episodes on the morning of 01/18/2018 when she was discovered to be in AF w/ a RVR. Recommendations: * The ventricular response has been difficult to control, but is now adequately controlled on the following: Diltiazem 180 mg twice daily, metoprolol 100 mg twice daily, and digoxin 0.125 mg daily. * Note digoxin level of 1.4 ng/ml this a.m. Continue on digoxin 0.125 mg daily. Follow-up digoxin level on an outpatient basis. * And LFTs to this a.m. with blood work. * Continue her on the Eliquis (apixaban) for anticoagulation. * Okay for discharge from cardiac standpoint. * Will follow-up on an outpatient basis. Continue telemetry? No
[2018-01-27] MEDS ORDERED: LANOXIN125 MCG PO (11:38)
[2018-01-27] MEDS ORDERED: DILTIAZEM 12HR90 MG PO (11:38)
[2018-01-27] MEDS ORDERED: METOPROLOL TART50 M1 PO (11:38)
[2018-01-27] MEDS ORDERED: ELIQUIS5 M1 PO (13:26)
--- NOTE | 2018-01-27 18:07 | Discharge Summary ---
Hospital Course Allergies: Coded Allergies: NO KNOWN ALLERGIES (NONE 01/26/18) Discharge Instructions Medications at Discharge Discharge Medications: Stop taking the following medications: Lisinopril (Lisinopril) 40 MG TABLET ORAL DAILY Qty = 90 Metoprolol Succinate (Metoprolol Succinate) 50 MG TAB.ER.24H ORAL DAILY Qty = 90 Nebivolol HCl (Bystolic) 5 MG TABLET ORAL DAILY Continue taking these medications: Mometasone Furoate (Nasonex) 50 MCG SPRAY.PUMP 1 Sunbright Both sides of nose DAILY Qty = 17 Comments: NOT GIVEN IN HOSPITAL Aripiprazole (Aripiprazole) 2 MG TABLET 1 Tablet ORAL DAILY Qty = 30 Comments: Last Taken: 01/27/18 Time: 9:30 AM Desvenlafaxine Succinate (Pristiq ER) 100 MG TAB.ER.24H 1 Tablet ORAL DAILY Qty = 30 Comments: Last Taken: 01/27/18 Time: 9:30 AM Famotidine (Famotidine) 20 MG TABLET 1 Tablet ORAL TWICE DAILY Comments: Last Taken: 01/27/18 Time: 9:30 AM Start taking the following new medications: Apixaban (Eliquis) 5 MG TABLET 1 Tablet ORAL TWICE DAILY Qty = 60 No Refills Instructions: . Comments: Last Taken: 01/27/18 Time: 9:30 AM Digoxin (Lanoxin) 125 MCG TABLET 1 Tablet ORAL DAILY Qty = 30 No Refills Comments: Last Taken: 01/26/18 Time: 5:00 PM IV DOSE GIVEN Metoprolol Tartrate (Metoprolol Tartrate) 50 MG TABLET 2 Tablet ORAL TWICE DAILY Qty = 90 No Refills Comments: Last Taken: 01/27/18 Time: 11:00 AM Diltiazem HCl (Diltiazem 12HR ER) 90 MG CAP.ER.12H 2 Tablet ORAL TWICE DAILY Qty = 90 No Refills Comments: Last Taken: 01/27/18 Time: 11:00 AM
== END 2018-01-27 14:40 | DRG 309 ==
LOC: ERH 09:09 → CRI 12:55 → ERHI 12:55 → ENRESERV 17:14 → ERHI 17:51 → ENTRNSPT 18:16 → EDTRNSPT 18:21 → EDTRNSPTSTS 18:21 → CRI 18:25 → 1NO 18:32 → CMPTRNSPT 18:42 → CRI 01-20 00:06 → 1NO 01-22 23:16 → ENPENDDIS 01-27 13:11 → ENTRNSPT 01-27 14:12 → 1NO 01-27 14:40 → CMPTRNSPT 01-27 14:48 → DELTRNSPT 01-27 14:50
PROVIDERS: Dermatology; Internal Medicine; Internal Medicine Interventional Cardiology; Nuclear Medicine Nuclear Cardiology; Physician Assistant; Student in an Organized Health Care Education/Training Program
DX: I48.91 Unspecified atrial fibrillation (principal); E87.1 Hypo-osmolality and hyponatremia; K81.0 Acute cholecystitis; Z68.41 Body mass index [BMI] 40.0-44.9, adult; I95.9 Hypotension, unspecified; F10.239 Alcohol dependence with withdrawal, unspecified; D64.9 Anemia, unspecified; R74.0 Nonspecific elevation of levels of transaminase and lactic acid dehydrogenase [LDH]; K21.9 Gastro-esophageal reflux disease without esophagitis; Z98.84 Bariatric surgery status; F32.9 Major depressive disorder, single episode, unspecified; Z87.891 Personal history of nicotine dependence; I10 Essential (primary) hypertension; E66.9 Obesity, unspecified; R00.0 Tachycardia, unspecified
CPT/HCPCS: 1NSP; CCU; 36415; 36592; 71045; 74177; 82436; 83010; 87040; 93005; 93010; 93306; 93970; 96374; 96375; 96376; 99291; G0480; J1160; J1644; J3490; J7040